=== PATIENT | female | born 1975 | race Caucasian/White ===

== ENCOUNTER 2023-03-27 21:19 | Inpatient (IN) ==
[2023-03-27] MEDS ORDERED: SODIUM CHLORIDE 0.9% 1000ML 1,000 ML IV SCH (21:45)
[2023-03-27] MEDS ORDERED: ALBUT/IPRATROP 3MG/0.5MG NEB 3 ML VIAL NEB STA (21:45)
--- NOTE | 2023-03-27 21:49 | Emergency Department Note ---
History of Present Illness General Chief complaint: Weakness Stated complaint: SOB, SYIONOTIC, GENERALIZED PAIN, NUMBNESS Time Seen by Provider: 03/27/23 21:27 History of Present Illness This 48-year-old female presents to the ER complaining of shortness of breath with minimal exertion for the past few days. Patient states her back pain is let up from her last ER visit. Patient states she has been quite weak and fatigued. Patient denies chest pain, abdominal pain, vomiting, diarrhea, flulike illness. She took some aspirin prior to coming here. Home Medications Medication Instructions Recorded Confirmed Type None (Patient States No Home Meds) ##0 05/03/08 History OXYCODONE/ACETAMINOPHEN 5MG/325MG 1 - 2 tab PO Q4HR PRN ##20 05/03/08 Rx (PERCOCET 5MG/325MG) methylprednisolone 4 mg tablets in 4 mg PO DAILY #21 ea 03/24/23 Rx a dose pack (Medrol (Bob)) ondansetron 4 mg disintegrating 4 mg PO Q6H PRN nausea and 03/24/23 Rx tablet vomiting #10 tabs oxycodone 5 mg tablet 5 mg PO Q4H PRN pain #15 tabs 03/24/23 Rx Allergies Allergy/AdvReac Type Severity Reaction Status Date / Time codeine Allergy Mild ITCH Verified 10/08/09 03:26 No Known Allergies Allergy Mild Unverified 05/03/08 21:05 Past Med/Surg History Medical History Kidney stones Rheumatoid arthritis Surgical History No significant past surgical history Social History Smoking Status: Current every day smoker Preferred Language: Kinyarwanda marital status: Current Living Situation: Spouse current occupational status: employed Feels Safe at Home: Yes Review of Systems A total of 10 systems reviewed and were otherwise negative Physical Exam Vital Signs Vital Signs - 24 hr 03/27/23 21:22 03/27/23 21:57 03/27/23 21:57 Temperature 36.9 C 37.3 C Temperature Source Temporal Artery Scan Oral Pulse Rate 130 H Pulse Rate [Finger] Pulse Rate from SpO2 Sensor Respiratory Rate 17 Respiratory Effort / Characteristics Respiratory Depth Blood Pressure 178/120 H Blood Pressure Mean 139 Pulse Oximetry 98 99 Oxygen Delivery Method Room Air Room Air Sepsis Recent Fever Within 48 Hours No Sepsis New/Unexplained Change in Mental Status No Sepsis Action Taken by Nursing No Action Required 03/27/23 21:56 03/27/23 21:51 03/27/23 21:52 Temperature Temperature Source Pulse Rate 111 H 111 H Pulse Rate [Finger] Pulse Rate from SpO2 Sensor 111 H Respiratory Rate 25 H Respiratory Effort / Characteristics Respiratory Depth Blood Pressure 185/118 H Blood Pressure Mean 133 Pulse Oximetry 98 Oxygen Delivery Method Room Air Sepsis Recent Fever Within 48 Hours Sepsis New/Unexplained Change in Mental Status Sepsis Action Taken by Nursing 03/28/23 00:10 Temperature Temperature Source Pulse Rate Pulse Rate [Finger] 109 H Pulse Rate from SpO2 Sensor Respiratory Rate 20 Respiratory Effort / Characteristics Non-Labored Spontaneous Respiratory Depth Normal Blood Pressure Blood Pressure Mean Pulse Oximetry 97 Oxygen Delivery Method Room Air Sepsis Recent Fever Within 48 Hours Sepsis New/Unexplained Change in Mental Status Sepsis Action Taken by Nursing VITALS: Vitals are noted on the nurse's note and reviewed by myself. Vital signs hypertensive and tachycardic. GENERAL: Pleasant female, in no acute distress, nondiaphoretic, well-developed well-nourished. SKIN: The skin was without rashes, erythema, edema, or bruising. There is no tenting of the skin. Capillary reflex less than 2 seconds. HEAD: Normocephalic atraumatic. EARS: External auditory canals clear, EYES: Pupils equal round and reactive to light and accommodation. Conjunctivae without injection, sclerae without icterus. Extraocular movements intact. NOSE: Patent, turbinates without inflammation or discharge. MOUTH: Mucous membranes moist. Pharynx without erythema or exudate. Uvula midline. Airway patent. Tongue does not deviate. NECK: Supple without nuchal rigidity. No lymphadenopathy. No thyromegaly. Cervical spine is nontender. No JVD. HEART: Mildly tachycardic rate and rhythm LUNGS: Clear to auscultation bilaterally without wheezes, rales or rhonchi. No retractions or accessory muscle use. ABDOMEN: Positive bowel sounds x 4. Normal tympanic percussion. Soft, nontender, without masses or organomegaly. Mujica sign negative. No guarding or rebound tenderness. No CVA tenderness MUSCULOSKELETAL: No muscle atrophy, erythema, or edema noted. NEURO: Patient was alert and oriented to person place and time. Normal sensation to light and sharp touch. No focal neurological deficits. Course Administered Medications Discontinued Medications Albuterol (Albut/Ipratrop 3mg/0.5mg Neb 3 Ml Vial) 3 ml NEB NOW STA; Protocol Stop: 03/27/23 21:46 Last Admin: 03/27/23 22:31 Dose: 3 ml Documented By: LUCINDA Sodium Chloride (Nss 1000ml) 1,000 mls @ 999 mls/hr IV .Q1H1M MARY CARMEN Stop: 03/27/23 22:45 Last Infusion: 03/28/23 00:08 Dose: 0 mls/hr Documented By: Admin: 03/27/23 22:52 Dose: 999 mls/hr Documented By: KAI Ioversol (Ioversol 350 Mg 125ml Prefilled Syringe) 116 ml IV ONCE ONE Stop: 03/28/23 00:11 Last Admin: 03/28/23 00:11 Dose: 116 ml Documented By: JENARO Medical Decision Making Medical Records Attestation: I reviewed the patient's medical records. Home Medications Current Medication List: was personally reviewed by me Laboratory Data Attestation: I reviewed the patient's lab results. 03/27/23 23:01 03/27/23 23:01 Lab Results 03/27/23 03/27/23 03/27/23 Range/Units 22:36 23:01 23:01 WBC 15.01 H (4.8-10.8) K/ul RBC 5.70 H (4.20-5.40) M/uL Hgb 16.8 H (12.0-16.0) g/dl Hct 48.4 H (37.0-47.0) % MCV 84.9 (80.0-100.0) fL MCH 29.5 (25.0-34.0) pg MCHC 34.7 (32.0-36.0) g/dL RDW Std Deviation 40.9 (36.4-46.3) fL RDW Coeff of Krystina 13.2 (11.5-14.5) % Plt Count 343 (130-400) K/uL MPV 10.1 (9.4-12.4) fL Immature Gran % (Auto) 0.4 % Neut % (Auto) 71.0 % Lymph % (Auto) 20.7 % [place] % (Auto) 7.3 % Eos % (Auto) 0.1 % Baso % (Auto) 0.5 % Neut # (Auto) 10.66 H (1.40-6.50) K/uL Lymph # (Auto) 3.10 (1.2-3.4) K/uL [place] # (Auto) 1.10 H (0.11-0.59) K/uL Eos # (Auto) 0.01 (0-0.50) K/uL Baso # (Auto) 0.08 (0-0.2) K/uL Immature Gran # (Auto) 0.06 (0.01-0.20) K/uL Sodium 138 (136-145) mmol/L Potassium 3.3 L (3.5-5.1) mmol/L Chloride 104 (98-107) mmol/L Carbon Dioxide 22 (21-32) mmol/L Anion Gap 12 H (3-11) BUN 22 (6-23) mg/dl Creatinine 1.29 H (0.6-1.2) mg/dl Est Cr Clr Drug Dosing Not Reportable Est GFR ( Amer) 55.9 ml/min Est GFR (Non-Af Amer) 48.2 ml/min BUN/Creatinine Ratio 17.1 (10-20) Glucose 112 H (70-99(Fasting)) mg/dl Calcium 9.2 (8.6-10.3) mg/dl Magnesium 2.0 (1.7-2.4) mg/dl Total Bilirubin 0.7 (0.2-1.0) mg/dl AST 14 (13-39) U/L ALT 12 (7-52) U/L Alkaline Phosphatase 111 H (34-104) U/L Total Creatine Kinase 76 (26-192) U/L Troponin I High Sens 21.0 H (0-14) pg/ml Total Protein 6.6 (6.0-8.3) gm/dl Albumin 4.3 (3.4-5.0) gm/dl Globulin 2.3 L (2.5-4.0) gm/dl Albumin/Globulin Ratio 1.9 (0.9-2) TSH (0.300-4.500) uIu/ml SARS-CoV-2 (PCR) NEGATIVE (Negative) 03/27/23 Range/Units 23:01 WBC (4.8-10.8) K/ul RBC (4.20-5.40) M/uL Hgb (12.0-16.0) g/dl Hct (37.0-47.0) % MCV (80.0-100.0) fL MCH (25.0-34.0) pg MCHC (32.0-36.0) g/dL RDW Std Deviation (36.4-46.3) fL RDW Coeff of Krystina (11.5-14.5) % Plt Count (130-400) K/uL MPV (9.4-12.4) fL Immature Gran % (Auto) % Neut % (Auto) % Lymph % (Auto) % [place] % (Auto) % Eos % (Auto) % Baso % (Auto) % Neut # (Auto) (1.40-6.50) K/uL Lymph # (Auto) (1.2-3.4) K/uL [place] # (Auto) (0.11-0.59) K/uL Eos # (Auto) (0-0.50) K/uL Baso # (Auto) (0-0.2) K/uL Immature Gran # (Auto) (0.01-0.20) K/uL Sodium (136-145) mmol/L Potassium (3.5-5.1) mmol/L Chloride (98-107) mmol/L Carbon Dioxide (21-32) mmol/L Anion Gap (3-11) BUN (6-23) mg/dl Creatinine (0.6-1.2) mg/dl Est Cr Clr Drug Dosing Est GFR ( Amer) ml/min Est GFR (Non-Af Amer) ml/min BUN/Creatinine Ratio (10-20) Glucose (70-99(Fasting)) mg/dl Calcium (8.6-10.3) mg/dl Magnesium (1.7-2.4) mg/dl Total Bilirubin (0.2-1.0) mg/dl AST (13-39) U/L ALT (7-52) U/L Alkaline Phosphatase (34-104) U/L Total Creatine Kinase (26-192) U/L Troponin I High Sens (0-14) pg/ml Total Protein (6.0-8.3) gm/dl Albumin (3.4-5.0) gm/dl Globulin (2.5-4.0) gm/dl Albumin/Globulin Ratio (0.9-2) TSH 1.540 (0.300-4.500) uIu/ml SARS-CoV-2 (PCR) (Negative) Imaging Data Attestation: I personally reviewed and interpreted this imaging study as follows: Radiologist's Impression: Chest CTA 03/27/23 21:45 Exam(s): CTA CHEST IV Amt: 116 ml optiray 350 EXAM: CT Angiography Chest With Intravenous Contrast CLINICAL HISTORY: Reason for exam: PE, sob, tachy. TECHNIQUE: Axial computed tomographic angiography images of the chest with intravenous contrast. CTDI is 81.54 mGy and DLP is 1743.43 mGy-cm. Automated exposure control was utilized for the study. A dose lowering technique was utilized adhering to the principles of ALARA. MIP reconstructed images were created and reviewed. COMPARISON: No relevant prior studies available. FINDINGS: Pulmonary arteries: Unremarkable. No acute pulmonary embolism. Aorta: No acute findings. No thoracic aortic aneurysm. Lungs: Unremarkable. No mass. No consolidation. Pleural space: Unremarkable. No focal infiltrate, pleural effusion, or pneumothorax. Heart: Mild cardiomegaly. No significant pericardial effusion. No evidence of RV dysfunction. Bones/joints: No acute fracture. No dislocation. Soft tissues: Unremarkable. Lymph nodes: Unremarkable. No enlarged lymph nodes. Liver: Hepatic steatosis. Stomach and bowel: Mild wall thickening of the proximal stomach measuring up to 2.4 cm. Upper GI endoscopy recommended. IMPRESSION: 1. No acute pulmonary embolism. 2. No focal infiltrate, pleural effusion, or pneumothorax. 3. Hepatic steatosis. 4. Mild wall thickening of the proximal stomach measuring up to 2.4 cm. Upper GI endoscopy recommended. Electronically signed by: Santo Enriquez MD 03/28/23 00:25 AM [facility] Narrative Prior records/ancillary studies reviewed and summarized above. Nursing notes reviewed. Additional history obtained from family. The patient's history was concerning for shortness of breath, weakness and fatigue. Differential diagnosis: Etiologies such as pulmonary, infectious, metabolic, infection, hypo/hyperglycemia, electrolyte abnormalities, cardiac sources, intracerebral event, toxicologic, neurologic, as well as others were entertained. Physical examination: As above. ER treatment provided: IV Lock An order was placed for continuous cardiac monitoring. The monitor shows a rate of 60-1 50 with a sinus rhythm per my interpretation. IV fluids, nebulizer were ordered On reassessment the patient felt better. Diagnostics interpretation by me: ECG: Ordered for dyspnea EKG: Normal sinus, normal intervals, no acute ST-T wave changes, rate of 103. Impression sinus tachycardia independently interpreted by myself I think arrhythmia is unlikely. EKG shows normal sinus rhythm with no interval abnormalities such as QT prolongation or WPW. There are no findings to suggest Brugada syndrome. Cardiac monitoring in the emergency department reveals no tachycardic or bradycardic dysrhythmia. Hypertrophic cardiomyopathy was considered but there are no clear historical elements pointing toward this. EKG is not suggestive. The QRS voltage is not extremely large and there are no suggestive Q waves. The labs Independently Interpreted by myself revealed leukocytosis, elevated troponin and repeat was ordered Imaging studies: Chest x-ray with no acute consolidation, pneumothorax or free air per my independent interpretation CT of the chest negative for PE but dilated stomach is seen per my independent interpretation and report reviewed as above by radiology. HEART SCORE: Hx: high/mod/low suspicion: 0 ECG: ST depression/nonspecific changes/normal: 0 Age: Greater than 65/45-64/less than 45: 1 Risk factors: (Hypertension, hyperlipidemia, diabetes, coronary disease, tobacco use, cocaine use): 1 Troponin: Greater than 2 times normal limits/1-2 times normal limits/normal: 1 Total: 3 Consultation: A consultation was placed with the hospitalist. The case was discussed and diagnostics were reviewed. The patient was evaluated in the ER for further treat ment. Exam and history seem consistent with dyspnea with elevated troponin. CTA was negative for PE. Labs and diagnostics were independent interpreted by myself. Radiology read the CAT scan. EKG was nonischemic. First troponin was elevated. Repeat was ordered. Medicine was consulted and the case was discussed. Patient will be admitted to the medical service for further evaluation and work- up. By the evaluation outlined above emergent etiologies such as infection, electrolyte abnormalities, intracerebral event, toxologic, neurologic, abnormalities blood glucose, metabolic, as well as others were deemed relatively unlikely. The pt informed about the findings as listed above. All questions were answered and pleased with the treatment. The chart was completed utilizing Dragon Speech voice recognition software. Grammatical errors, random word insertions, pronoun errors, and incomplete sentences are an occassional consequence of this system due to software limitat ions, ambient noise, and hardware issues. Any formal questions or concerns about the content, text, or information contained within the body of this dictation should be directly addressed to the physician assistant director of residence life for clarification. Impression & Plan Acute dyspnea, Elevated troponin Discharge Plan Visit Data Chief Complaint: Weakness Stated Complaint: SOB, SYIONOTIC, GENERALIZED PAIN, NUMBNESS ED Provider: Po Miranda ED Midlevel Provider: Kary Montero Discharge Problem: Acute dyspnea, Elevated troponin Patient Disposition: Admitted As Inpatient Condition: Good Forms Stand Alone Forms: studentSN Prescriptions Prescriptions: No Action None (Patient States No Home Meds) . Qty: 0 OXYCODONE/ACETAMINOPHEN 5MG/325MG (PERCOCET 5MG/325MG) tablet 1 - 2 tab PO Q4HR PRN Qty: 20 0RF methylprednisolone [Medrol (Bob)] 4 mg tablets,dose pack 4 mg PO DAILY Qty: 21 0RF Rx Instructions: Per package instructions ondansetron 4 mg tablet,disintegrating 4 mg PO Q6H PRN (Reason: nausea and vomiting) Qty: 10 0RF oxycodone 5 mg tablet 5 mg PO Q4H PRN (Reason: pain) Qty: 15 0RF Referrals Referrals: Neo Prince MD [Primary Care Provider] -
[2023-03-27 23:27] LABS: Basophils # (auto) 0.08 K/uL (0-0.2); Basophils % (auto) 0.5 %; Eosinophils # (auto) 0.01 K/uL (0-0.50); Eosinophils % (auto) 0.1 %; Hematocrit (blood only) 48.4 % (37.0-47.0); Hemoglobin 16.8 g/dl (12.0-16.0); Immature Granulocytes # (auto) 0.06 K/uL (0.01-0.20); Immature Granulocytes % (auto) 0.4 %; Lymphocytes % (auto) 20.7 %; Mean Corpuscular Hemoglobin 29.5 pg (25.0-34.0); Mean Corpuscular Hgb Conc 34.7 g/dL (32.0-36.0); Mean Corpuscular Volume 84.9 fL (80.0-100.0); Mean Platelet Volume 10.1 fL (9.4-12.4); Monocytes % (auto) 7.3 %; Neutrophils # (auto) 10.66 K/uL (1.40-6.50); Platelet Count 343 K/uL (130-400); RDW Coefficient of Variation 13.2 % (11.5-14.5); RDW Standard Deviation 40.9 fL (36.4-46.3); White Blood Count 15.01 K/ul (4.8-10.8)
[2023-03-27 23:33] LABS: Albumin Level 4.3 gm/dl (3.4-5.0); Anion Gap 12 (3-11); Bilirubin,Total 0.7 mg/dl (0.2-1.0); Calcium 9.2 mg/dl (8.6-10.3); Carbon Dioxide 22 mmol/L (21-32); Chloride 104 mmol/L (98-107); Potassium 3.3 mmol/L (3.5-5.1); Sodium 138 mmol/L (136-145)
[2023-03-27 23:39] LABS: Alanine Aminotransferase 12 U/L (7-52); Albumin Globulin Ratio 1.9 (0.9-2); Alkaline Phosphatase 111 U/L (34-104); Aspartate Aminotransferase 14 U/L (13-39); BUN Creatinine Ratio 17.1 (10-20); Blood Urea Nitrogen 22 mg/dl (6-23); Creatine Kinase 76 U/L (26-192); Est GFR (African American) 55.9 ml/min; Est GFR (Non-African American) 48.2 ml/min; Globulin 2.3 gm/dl (2.5-4.0); Glucose 112 mg/dl (70-99(Fasting)); Total Protein 6.6 gm/dl (6.0-8.3)
[2023-03-28] MEDS ORDERED: IOVERSOL 350 MG 125mL Prefilled Syringe IV ONE (00:10)
--- NOTE | 2023-03-28 00:26 | CT Scan Report ---
Exam(s): CTA CHEST IV Amt: 116 ml optiray 350 EXAM: CT Angiography Chest With Intravenous Contrast CLINICAL HISTORY: Reason for exam: PE, sob, tachy. TECHNIQUE: Axial computed tomographic angiography images of the chest with intravenous contrast. CTDI is 81.54 mGy and DLP is 1743.43 mGy-cm. Automated exposure control was utilized for the study. A dose lowering technique was utilized adhering to the principles of ALARA. MIP reconstructed images were created and reviewed. COMPARISON: No relevant prior studies available. FINDINGS: Pulmonary arteries: Unremarkable. No acute pulmonary embolism. Aorta: No acute findings. No thoracic aortic aneurysm. Lungs: Unremarkable. No mass. No consolidation. Pleural space: Unremarkable. No focal infiltrate, pleural effusion, or pneumothorax. Heart: Mild cardiomegaly. No significant pericardial effusion. No evidence of RV dysfunction. Bones/joints: No acute fracture. No dislocation. Soft tissues: Unremarkable. Lymph nodes: Unremarkable. No enlarged lymph nodes. Liver: Hepatic steatosis. Stomach and bowel: Mild wall thickening of the proximal stomach measuring up to 2.4 cm. Upper GI endoscopy recommended. IMPRESSION: 1. No acute pulmonary embolism. 2. No focal infiltrate, pleural effusion, or pneumothorax. 3. Hepatic steatosis. 4. Mild wall thickening of the proximal stomach measuring up to 2.4 cm. Upper GI endoscopy recommended. Electronically signed by: Santo Enriquez MD 03/28/23 00:25 AM
--- NOTE | 2023-03-28 02:14 | History & Physical Report ---
Date of Service March 28, 2023 Assessment & Plan (1) Acute dyspnea: Plan: 48-year-old female presents with dyspnea on exertion and found to have an elevation of troponin. Dyspnea on exertion Mild troponin elevation Denies chest pain CTA chest okay Ongoing tobacco abuse with quarter pack a day No obvious wheezing Recent nausea vomiting but no obvious aspiration on imaging studies We will do nebs [id number] We will do serial cardiac enzymes and echocardiogram and consult cardio in a.m. N.p.o. for now Monitoring telemetry Stomach wall thickening on CAT scan We will place her on IV Pepcid Consult GI in a.m. Lumbar radiculitis Was in the ER couple of days ago with back pain Medrol Dosepak was prescribed Currently pain improved We will hold the Medrol Dosepak Hypertension Seems not on any medication We will place her on IV labetalol as needed We will monitor Obesity Needs counseling Inflammatory polyarthritis We will hold leflunomide and etodolac for now Fibromyalgia On Cymbalta DVT prophylaxis SCDs for now Disposition Med/telemetry Full code (2) Elevated troponin: History of Present Illness Chief Complaint: Shortness of breath on exertion Primary Care Provider: Neo Prince MD 48-year-old female past medical significant for hypertension, obesity, inflammatory polyarthritis, fibromyalgia, osteoarthritis of knees, migraine, ongoing tobacco abuse smokes quarter pack a day presents with shortness of breath on exertion starting today. Patient was here couple of days ago in ER for abdominal pain and back pain at the time CT abdomen pelvis was okay and she was discharged home on Medrol Dosepak for lumbar radiculitis and pain medications. Her back pain is improved. Patient not coughing much. Afebrile. Denies any chest pain. No headache or dizziness. No blurred vision. No earache or runny nose or sore throat. No dysphagia. No nausea. No abdominal pain currently. Normal bowel and bladder meds. Resting comfortably. Past medical history as mentioned above Past surgical history bilateral carpal tunnel surgery Family history patient is adopted Social history smokes quarter pack a day. No alcohol use. No drug use. Allergies Allergy/AdvReac Type Severity Reaction Status Date / Time codeine Allergy Mild ITCH Verified 10/08/09 03:26 No Known Allergies Allergy Mild Unverified 05/03/08 21:05 Home Medications Medication Instructions Recorded Confirmed Type duloxetine 60 mg capsule,delayed 60 mg PO DAILY 03/28/23 03/28/23 History release etodolac 500 mg tablet 500 mg PO BID 03/28/23 03/28/23 History hydrocodone 5 mg-acetaminophen 325 1 tab PO TID PRN Pain 03/28/23 03/28/23 History mg tablet leflunomide 10 mg tablet 10 mg PO DAILY 03/28/23 03/28/23 History methylprednisolone 4 mg tablets in 4 mg PO UD 03/28/23 03/28/23 History a dose pack Past Med/Surg History Medical History Kidney stones Rheumatoid arthritis Surgical History No significant past surgical history Social History Smoking Status: Current every day smoker Preferred Language: Cymro marital status: Current Living Situation: Spouse current occupational status: employed Feels Safe at Home: Yes Review of Systems Review of Systems: All systems reviewed & are unremarkable except as noted in Subjective Physical Exam Physical Exam: General-Not in distress Head- atraumatic Eyes- PERRL ENT- oropharynx clear Neck- supple, no JVD, Lungs- clear to auscultation and percussion Heart- regular rhythm; no murmur, no gallop, no rub appreciated Abdomen- normal bowel sounds, soft, nontender, no distension Extremities- no pretibial edema, no erythema. Neuro- alert, oriented x 3; PERRL, EOMI; no facial palsy; no dysarthria; NOn focal. Skin- warm & dry Results & Data Results & Data Vital Signs (Past 12 Hours) Vital Signs Temp Pulse Pulse Resp BP BP Pulse Ox 03/28/23 02:02 100 H 20 174/119 H 100 03/28/23 01:56 103 H 03/28/23 00:10 109 H 20 97 03/27/23 21:52 111 H 25 H 98 03/27/23 21:51 185/118 H 03/27/23 21:56 111 H 03/27/23 21:57 99 03/27/23 21:57 37.3 C 03/27/23 21:22 36.9 C 130 H 17 178/120 H 98 O2 Del Method 03/28/23 02:02 Room Air 03/28/23 01:56 03/28/23 00:10 Room Air 03/27/23 21:52 Room Air 03/27/23 21:51 03/27/23 21:56 03/27/23 21:57 Room Air 03/27/23 21:57 03/27/23 21:22 Room Air Diagnostic Findings Laboratory Results WBC 15.01 K/ul (4.8-10.8) H 03/27/23 23:01 RBC 5.70 M/uL (4.20-5.40) H 03/27/23 23:01 Hgb 16.8 g/dl (12.0-16.0) H 03/27/23 23:01 Hct 48.4 % (37.0-47.0) H 03/27/23 23:01 MCV 84.9 fL (80.0-100.0) 03/27/23 23:01 MCH 29.5 pg (25.0-34.0) 03/27/23 23:01 MCHC 34.7 g/dL (32.0-36.0) 03/27/23 23:01 RDW Std Deviation 40.9 fL (36.4-46.3) 03/27/23 23:01 RDW Coeff of Krystina 13.2 % (11.5-14.5) 03/27/23 23:01 Plt Count 343 K/uL (130-400) 03/27/23 23:01 MPV 10.1 fL (9.4-12.4) 03/27/23 23:01 Immature Gran % (Auto) 0.4 % 03/27/23 23:01 Neut % (Auto) 71.0 % 03/27/23 23:01 Lymph % (Auto) 20.7 % 03/27/23 23:01 [place] % (Auto) 7.3 % 03/27/23 23:01 Eos % (Auto) 0.1 % 03/27/23 23:01 Baso % (Auto) 0.5 % 03/27/23 23:01 Neut # (Auto) 10.66 K/uL (1.40-6.50) H 03/27/23 23:01 Lymph # (Auto) 3.10 K/uL (1.2-3.4) 03/27/23 23:01 [place] # (Auto) 1.10 K/uL (0.11-0.59) H 03/27/23 23:01 Eos # (Auto) 0.01 K/uL (0-0.50) 03/27/23 23:01 Baso # (Auto) 0.08 K/uL (0-0.2) 03/27/23 23:01 Immature Gran # (Auto) 0.06 K/uL (0.01-0.20) 03/27/23 23:01 Sodium 138 mmol/L (136-145) 03/27/23 23:01 Potassium 3.3 mmol/L (3.5-5.1) L 03/27/23 23: Chloride 104 mmol/L (98-107) 03/27/23 23:01 Carbon Dioxide 22 mmol/L (21-32) 03/27/23 23: Anion Gap 12 (3-11) H 03/27/23 23:01 BUN 22 mg/dl (6-23) 03/27/23 23:01 Creatinine 1.29 mg/dl (0.6-1.2) H 03/27/23 23:01 Est Cr Clr Drug Dosing Not Reportable 03/27/23 23: Est GFR ( Amer) 55.9 ml/min 03/27/23 23: Est GFR (Non-Af Amer) 48.2 ml/min 03/27/23 23:01 BUN/Creatinine Ratio 17.1 (10-20) 03/27/23 23: Glucose 112 mg/dl (70-99(Fasting)) H 03/27/23 23:01 Calcium 9.2 mg/dl (8.6-10.3) 03/27/23 23:01 Magnesium 2.0 mg/dl (1.7-2.4) 03/27/23 23:01 Total Bilirubin 0.7 mg/dl (0.2-1.0) 03/27/23 23:01 AST 14 U/L (13-39) 03/27/23 23:01 ALT 12 U/L (7-52) 03/27/23 23:01 Alkaline Phosphatase 111 U/L (34-104) H 03/27/23 23:01 Total Creatine Kinase 76 U/L (26-192) 03/27/23 23:01 Troponin I High Sens 26.2 pg/ml (0-14) H 03/28/23 01:10 Total Protein 6.6 gm/dl (6.0-8.3) 03/27/23 23:01 Albumin 4.3 gm/dl (3.4-5.0) 03/27/23 23:01 Globulin 2.3 gm/dl (2.5-4.0) L 03/27/23 23:01 Albumin/Globulin Ratio 1.9 (0.9-2) 03/27/23 23:01 TSH 1.540 uIu/ml (0.300-4.500) 03/27/23 23:01 SARS-CoV-2 (PCR) NEGATIVE (Negative) 03/27/23 22:36 Impressions Chest CTA 03/27/23 21:45 Exam(s): CTA CHEST IV Amt: 116 ml optiray 350 EXAM: CT Angiography Chest With Intravenous Contrast CLINICAL HISTORY: Reason for exam: PE, sob, tachy. TECHNIQUE: Axial computed tomographic angiography images of the chest with intravenous contrast. CTDI is 81.54 mGy and DLP is 1743.43 mGy-cm. Automated exposure control was utilized for the study. A dose lowering technique was utilized adhering to the principles of ALARA. MIP reconstructed images were created and reviewed. COMPARISON: No relevant prior studies available. FINDINGS: Pulmonary arteries: Unremarkable. No acute pulmonary embolism. Aorta: No acute findings. No thoracic aortic aneurysm. Lungs: Unremarkable. No mass. No consolidation. Pleural space: Unremarkable. No focal infiltrate, pleural effusion, or pneumothorax. Heart: Mild cardiomegaly. No significant pericardial effusion. No evidence of RV dysfunction. Bones/joints: No acute fracture. No dislocation. Soft tissues: Unremarkable. Lymph nodes: Unremarkable. No enlarged lymph nodes. Liver: Hepatic steatosis. Stomach and bowel: Mild wall thickening of the proximal stomach measuring up to 2.4 cm. Upper GI endoscopy recommended. IMPRESSION: 1. No acute pulmonary embolism. 2. No focal infiltrate, pleural effusion, or pneumothorax. 3. Hepatic steatosis. 4. Mild wall thickening of the proximal stomach measuring up to 2.4 cm. Upper GI endoscopy recommended. Electronically signed by: Santo Enriquez MD 03/28/23 00:25 AM ECG Additional Comments: ECG sinus tachycardia with rate of [address]at[address] no acute ST seen Code Status & VTE Plan VTE Prophylaxis Plan VTE Prophylaxis will be ordered: Yes
[2023-03-28 02:43] LABS: Appearance Urine Clear (Clear); Bacteria Urine Automated Negative (Negative); Bilirubin Urine Negative (Negative); Blood Urine 3+ (Negative); Color Urine Yellow; Glucose Urine UA Negative (Negative); Ketones Urine Negative (Negative); Leukocyte Esterase Urine Negative (Negative); Nitrite Urine Negative (Negative); Protein Urine Trace (Negative); RBC Urine Automated >30 /hpf (0-4); Specific Gravity Urine > 1.045 (1.000-1.030); Urobilinogen Urine Negative (Negative); WBC Urine Automated >30 /hpf (0-5)
[2023-03-28 02:55] LABS: Cast Urine Automated 0 /lpf (0-5)
[2023-03-28] MEDS ORDERED: HYDROCODONE/ACETAMOPHEN 5/325MG TAB PO ONE (03:21)
[2023-03-28] MEDS ORDERED: NITROGLYCERIN SL 0.4 MG/TAB TAB SL PRN (04:43)
[2023-03-28] MEDS ORDERED: ACETAMINOPHEN 325 MG TAB PO PRN (04:43)
[2023-03-28] MEDS ORDERED: ONDANSETRON INJ 2 MG/ML 2 ML VIAL IV PRN (04:43)
[2023-03-28] MEDS ORDERED: SODIUM CHLORIDE 0.9% 1000ML 1,000 ML IV SCH (05:00)
[2023-03-28] MEDS ORDERED: LABETALOL HCL IV 5 MG/ML 20ML IV STA (05:53)
[2023-03-28] MEDS: NICOTINE 14 MG/24 HR PATCH TD SCH (06:42)
[2023-03-28] MEDS: ALBUT/IPRATROP 3MG/0.5MG NEB 3 ML VIAL NEB SCH ×4 (06:57→19:53)
--- NOTE | 2023-03-28 07:07 | XRay Report ---
XR chest 1V portable HISTORY: weakness COMPARISON: None. FINDINGS: The lungs are clear. Cardiac silhouette is normal in size. No pleural effusions. No pneumot horax. IMPRESSION: No acute process. ACT 112: Negative or not required by law. Electronically signed by: Venu Zuniga M.D. 03/28/2023 7:06 AM
[2023-03-28 07:22] LABS: Basophils # (auto) 0.04 K/uL (0-0.2); Basophils % (auto) 0.4 %; Eosinophils % (auto) 1.1 %; Hematocrit (blood only) 45.9 % (37.0-47.0); Hemoglobin 15.5 g/dl (12.0-16.0); Immature Granulocytes # (auto) 0.02 K/uL (0.01-0.20); Immature Granulocytes % (auto) 0.2 %; Lymphocytes # (auto) 2.03 K/uL (1.2-3.4); Lymphocytes % (auto) 22.3 %; Mean Corpuscular Hgb Conc 33.8 g/dL (32.0-36.0); Mean Corpuscular Volume 85.8 fL (80.0-100.0); Mean Platelet Volume 10.1 fL (9.4-12.4); Monocytes # (auto) 0.68 K/uL (0.11-0.59); Monocytes % (auto) 7.5 %; Neutrophils # (auto) 6.24 K/uL (1.40-6.50); Neutrophils % (auto) 68.5 %; Platelet Count 301 K/uL (130-400); RDW Coefficient of Variation 13.2 % (11.5-14.5); RDW Standard Deviation 40.8 fL (36.4-46.3); Red Blood Count 5.35 M/uL (4.20-5.40); White Blood Count 9.11 K/ul (4.8-10.8)
--- NOTE | 2023-03-28 07:24 | Anesthesiology Consultation ---
Date of Service March 28, 2023 Assessment & Plan (1) Encounter for pre-operative examination: Chart Review Chart Review: Acceptable Risk for Surgery, Patient NOT seen in Pre Admission Testing and data entry associate initiated Consults Requested none History Surgery Operation Date: 03/28/23 16:30 Proposed Procedures p Esophagogastroduodenoscopy Dr Rocco Valiente, DO Height/Weight Height: 5 ft 4 in Weight: 97.8 kg Allergies Allergy/AdvReac Type Severity Reaction Status Date / Time codeine Allergy Mild ITCH Verified 10/08/09 03:26 No Known Allergies Allergy Mild Unverified 05/03/08 21:05 Medications Home Medications Medication Instructions Recorded Confirmed Last Taken duloxetine 60 mg capsule,delayed 60 mg PO DAILY 03/28/23 03/28/23 Unknown release etodolac 500 mg tablet 500 mg PO BID 03/28/23 03/28/23 Unknown hydrocodone 5 mg-acetaminophen 325 1 tab PO TID PRN Pain 03/28/23 03/28/23 Unknown mg tablet leflunomide 10 mg tablet 10 mg PO DAILY 03/28/23 03/28/23 Unknown methylprednisolone 4 mg tablets in 4 mg PO UD 03/28/23 03/28/23 Unknown a dose pack Active Medications Generic Name Dose Route Start Last Admin Trade Name Freq PRN Reason Stop Dose Admin Albuterol 3 ml 03/28/23 07:00 03/28/23 06:57 Albut/Ipratrop 3mg/0.5mg Neb 3 Ml Vial NEB 04/27/23 06:59 3 ml QIDR MARY CARMEN Administration Protocol Sodium Chloride 1,000 mls @ 80 mls/hr 03/28/23 05:00 03/28/23 05:46 Nss 1000ml IV 03/28/23 17:29 80 mls/hr .[id number] MARY CARMEN Administration Nicotine 14 mg 03/28/23 06:00 03/28/23 06:42 Nicotine 14 Mg/24 Hr Patch TD 04/27/23 05:59 14 mg DAILY MARY CARMEN Administration Past Medical History Medical History (Updated 03/28/23 @ 07:25 by Angel Gil MD) Encounter for pre-operative examination Kidney stones Rheumatoid arthritis Past Surgical History Surgical History No significant past surgical history Social History Smoking Status: Current every day smoker tobacco type: cigarettes Smoking cigarettes per day: 5-10 Do You Dip or Chew Tobacco: No Hx Alcohol Use: Yes alcohol intake frequency: holidays/special occasions only Hx Substance Use: No substance use type: does not use Physical Exam Vital Signs Last Vital Signs Temp 36.5 C 03/28/23 07:09 Pulse 74 03/28/23 07:09 Resp 18 03/28/23 07:09 BP 174/105 H 03/28/23 07:09 Pulse Ox 94 03/28/23 07:09 O2 Del Method Room Air 03/28/23 07:09 Testing Laboratory Results 03/28/23 06:48 Urine Color Yellow 03/28/23 02:28 Urine Appearance Clear (Clear) 03/28/23 02:28 Urine pH 6.0 (4.5-7.5) 03/28/23 02:28 Ur Specific [place] > 1.045 (1.000-1.030) H 03/28/23 02:28 Urine Protein Trace (Negative) H 03/28/23 02:28 Urine Glucose (UA) Negative (Negative) 03/28/23 02:28 Urine Ketones Negative (Negative) 03/28/23 02:28 Urine Nitrite Negative (Negative) 03/28/23 02:28 Ur Leukocyte Esterase Negative (Negative) 03/28/23 02:28 Urine WBC (Auto) >30 /hpf (0-5) H 03/28/23 02:28 Urine RBC (Auto) >30 /hpf (0-4) H 03/28/23 02:28 U Hyaline Cast (Auto) 0 /lpf (0-5) 03/28/23 02:28 U Epithel Cells (Auto) 10-20 /lpf (0-5) H 03/28/23 02:28 Urine Bacteria (Auto) Negative (Negative) 03/28/23 02:28 Electrocardiogram Date: 03/27/23 21:49:36 [facility]-EDSTAT ROUTINE RETRIEVAL Sinus tachycardia Biatrial enlargement Cannot rule out Anterior infarct , age undetermined Abnormal ECG No previous ECGs available 25mm/s10mm/[id number] 243CID: 24Referred by: REFERRED SELF Unconfirmed Vent. rate 103 BPM WV interval 130 ms QRS duration 74 ms QT/QTc 320/419 ms P Chest X-Ray Date: 03/27/23 XR chest 1V portable HISTORY: weakness COMPARISON: None. FINDINGS: The lungs are clear. Cardiac silhouette is normal in size. No pleural effusions. No pneumothorax. IMPRESSION: No acute process.
[2023-03-28] MEDS: DULoxetine HCL 60 MG CAP PO SCH (07:38)
[2023-03-28 07:42] LABS: BUN Creatinine Ratio 18.9 (10-20); Calcium 8.9 mg/dl (8.6-10.3); Creatinine Clr Calc Pharmacy 80.5 ml/min; Est GFR (African American) 80.9 ml/min; Est GFR (Non-African American) 69.8 ml/min; Potassium 3.3 mmol/L (3.5-5.1)
--- NOTE | 2023-03-28 07:57 | Gastrointestinal Consultation ---
Date of Consultation March 28, 2023 Assessment & Plan (1) Abnormal CT of the abdomen: (2) Upper abdominal pain: Plan EGD today by Dr. Valiente, further recommendations to follow. Supervising Physician Co-Signing Physician Notes I saw and evaluated the patient. She presented with shortness of breath but was found to have evidence of gastric wall thickening on imaging study. Upper endoscopy has been requested by the internal medicine service for further evaluation. The patient denies having nausea or vomiting today or difficulty with swallowing. Physical examination Patient in no obvious distress somewhat nervous appearing No abdominal tenderness noted Impression: Patient with nonspecific findings on imaging study, given the clinical scenario we are certainly happy to provide endoscopic evaluation for further evaluation. We discussed risks and benefits of upper endoscopy to include bleeding infection perforation pain and need for follow-up studies. Pending these results the patient may benefit from further evaluation as outpatient with endoscopic ultrasound. History of Present Illness Reason for Consultation: stomach thickening on ct scan Requesting Physician: Dr. Maldonado Attending Physician: Blaise Louis MD History of Present Illness Ms. Malinda Bridges is a 48 yr old female pt of Dr. Prince w a hx of HTN, obesity, inflammatory polyarthritis, fibromyalgia, migraines, smoking who presented to the ED yesterday for SOB. GI is consulted for gastric wall thickening on CT. She experienced severe upper/mid abdomen pain as well as mid/lower back pain on Sunday and again on Sun. She was seen in the [place] ED on Sunday then [facility] ED on Sun. CT abd/pelvis was normal here during that ED visit and she was discharged on prednisone for back/left leg pain. Although that improved, she had episodes of diaphoresis, SOB yesterday and returned to the ED. She currently has some mild/moderate epigastric pain and tenderness on exam but has not had reflux, epigastric burning, dysphagia, vomiting or blood in her BMs. She has had some nausea. CTA of the chest on arrival w gastric wall thickening. She has been kept NPO and we plan to do EGD this morning. No hx of prior EGD or colonoscopy. Allergies Allergy/AdvReac Type Severity Reaction Status Date / Time codeine Allergy Mild ITCH Verified 03/28/23 08:57 No Known Allergies Allergy Mild Verified 03/28/23 08:57 Home Medications Medication Instructions Recorded Confirmed Type duloxetine 60 mg capsule,delayed 60 mg PO DAILY 03/28/23 03/28/23 History release etodolac 500 mg tablet 500 mg PO BID 03/28/23 03/28/23 History hydrocodone 5 mg-acetaminophen 325 1 tab PO TID PRN Pain 03/28/23 03/28/23 History mg tablet leflunomide 10 mg tablet 10 mg PO DAILY 03/28/23 03/28/23 History methylprednisolone 4 mg tablets in 4 mg PO UD 03/28/23 03/28/23 History a dose pack Patient History Medical History (Updated 03/28/23 @ 09:01 by YOEL Wan) Encounter for pre-operative examination Kidney stones Rheumatoid arthritis Surgical History No significant past surgical history Social History Smoking Status: Current every day smoker Cigarettes Per Day: 5-10; Second Hand Exposure: No; Do You Dip or Chew Tobacco: No; Tobacco Cessation Education Requested by Patient: No Hx Alcohol Use: Yes Hx Substance Use: No Preferred Language: Swiss Communication Ability: Effective Emergency Room Specialist Required: No Beliefs That Will Affect Care: None marital status: Current Living Situation: Spouse Current Living Situation Comment: with current occupational status: employed Other Information That Helps Us Care for You: No Feels Safe at Home: Yes Safety Concerns: Feels Safe At This Time Assistive Devices: Cane Review of Systems Review of Systems: ROS: Gen: + Weakness, + fatigue; no fevers, or unintentional weight loss Eyes: No eye redness, or pain, no recent vision changes Resp: + episode of SOB prior to arrival - resolved. No cough Cardio: No palpitations/irregular beats, no chest pain GI: As per HPI, otherwise (-) : Denies pain on urination Skin: No jaundice, itching or new rashes Hem: no excessive bruising or bleeding tendencies. Psych: reports she hasn't had much sleep in days; a bit "reved up." Physical Exam Constitutional: WD/WN, vitals as above Eyes: PERRL, conjunctivae normal, anicteric sclerae ENMT: external ear and nose normal, oropharynx normal Neck: trachea midline, no thyromegaly Respiratory: normal respiratory effort, lungs clear to auscultation Cardiovascular: RRR, no murmur, no edema Gastrointestinal (Abdomen): Inspection/Auscultation: abdomen normal to inspection and normal bowel sounds; abdomen not distended Percussion/Palpation: + abdomen tender (mild epigastric ) and abdomen soft; no hepatosplenomegaly and no ascites Musculoskeletal: no cyanosis or clubbing, extremities motor strength 5/5 Skin: no rashes, warm and dry Neurologic: PERRL, EOMI, accommodation nl, no face palsy, no dysarthria Psychiatric: A+Ox3, euthymic affect (except slightly anxious, energetic) Lymphatic: no cervical or axillary lymphadenopathy Results & Data Vital Signs (Past 12 Hours) Vital Signs Temp Pulse Pulse Resp BP BP Pulse Ox 03/28/23 07:09 36.5 C 74 18 174/105 H 94 03/28/23 07:01 84 16 98 03/28/23 06:37 83 176/96 H 03/28/23 06:19 88 178/99 H 03/28/23 05:50 165/99 H 03/28/23 05:18 03/28/23 05:18 36.8 C 97 H 18 182/95 H 97 03/28/23 02:02 100 H 20 174/119 H 100 03/28/23 01:56 103 H 03/28/23 00:10 109 H 20 97 03/27/23 21:52 111 H 25 H 98 03/27/23 21:51 185/118 H 03/27/23 21:56 111 H 03/27/23 21:57 99 03/27/23 21:57 37.3 C 03/27/23 21:22 36.9 C 130 H 17 178/120 H 98 O2 Del Method 03/28/23 07:09 Room Air 03/28/23 07:01 Room Air 03/28/23 06:37 03/28/23 06:19 03/28/23 05:50 03/28/23 05:18 Room Air 03/28/23 05:18 Room Air 03/28/23 02:02 Room Air 03/28/23 01:56 03/28/23 00:10 Room Air 03/27/23 21:52 Room Air 03/27/23 21:51 03/27/23 21:56 03/27/23 21:57 Room Air 03/27/23 21:57 03/27/23 21:22 Room Air Laboratory Results Trops are elevated 21->26->23. WBC 15->9; Hb 15.5, Hct 45, Plts 301, na 140, I 3.3, Cl 109, Co2 24, BUN 18, Cr .95, glucose 107 Diagnostic Findings CTA Chest 03/27/23: 1 No acute pulmonary embolism. 2. No focal infiltrate, pleural effusion, or pneumothorax. 3. Hepatic steatosis. 4. Mild wall thickening of the proximal stomach measuring up to 2.4 cm. Upper GI endoscopy recommended. CTAP w IV on 03/24/23 (prior ED visit for back pain): 1. Normal appendix. No bowel obstruction. No bowel wall thickening. 2. 3 mm right renal calculus, which could be within or adjacent to a parapelvic cyst. No ureteral calculi. A punctate right pelvic calcification does not appear to represent a ureteral calculus.
[2023-03-28] MEDS ORDERED: POTASSIUM CHLORIDE CRTAB 20 MEQ TABCR PO STA ×2 (08:31→11:02)
[2023-03-28] MEDS ORDERED: FAMOTIDINE 20 MG in SYRINGE 3 ML IV SCH (09:00)
[2023-03-28] MEDS ORDERED: NICOTINE 14 MG/24 HR PATCH TD SCH (09:00)
[2023-03-28] MEDS ORDERED: PROPOFOL IV EMULSION 10 MG/ML 20 ML VIAL IV ONE ×2 (09:10→10:11)
[2023-03-28] MEDS ORDERED: LIDOCAINE 2% 2 ML VIAL/AMP(20MG/ML) INFIL ONE (09:10)
[2023-03-28] MEDS: LABETALOL HCL IV 5 MG/ML 20ML IV PRN (09:23)
--- NOTE | 2023-03-28 09:59 | GI REPORT ---
Patient Name: Malinda Bridges Procedure Date: 03/28/2023 9:12 AM Date of : 1975 Admit Type: Inpatient Age: 48 Gender: Female Attending MD: Noam Valiente DO, Procedure: Upper GI endoscopy Providers: Noam Valiente DO Referring MD: Suzy Louis Md Indications: Abnormal CT of the GI tract Medicines: Monitored Anesthesia Care Complications: No immediate complications. Estimated blood loss: Minimal. Estimated Blood Loss: Estimated blood loss was minimal. Procedure: Pre-Anesthesia Assessment: - Prior to the procedure, a History and Physical was performed, and patient medications, allergies and sensitivities were reviewed. The patient's tolerance of previous anesthesia was reviewed. - The risks and benefits of the procedure and the sedation options and risks were discussed with the patient. All questions were answered and informed consent was obtained. - Patient identification and proposed procedure were verified prior to the procedure by the physician, the nurse and the supervisor burling and joining. The procedure was verified in the procedure room. - Pre-procedure physical examination revealed no contraindications to sedation. - ASA Grade Assessment: III - A patient with severe systemic disease. - After reviewing the risks and benefits, the patient was deemed in satisfactory condition to undergo the procedure. - The anesthesia plan was to use monitored anesthesia care (MAC). - Immediately prior to administration of medications, the patient was re-assessed for adequacy to receive sedatives. - The heart rate, respiratory rate, oxygen saturations, blood pressure, adequacy of pulmonary ventilation, and response to care were monitored throughout the procedure. - The physical status of the patient was re-assessed after the procedure. After obtaining informed consent, the endoscope was passed under direct vision. Throughout the procedure, the patient's blood pressure, pulse, and oxygen saturations were monitored continuously. The Scope was introduced through the mouth, and advanced to the third part of duodenum. The upper GI endoscopy was accomplished without difficulty. The patient tolerated the procedure well. Findings: The examined esophagus was normal. The Z-line was regular and was found 38 cm from the incisors. Diffuse mild inflammation characterized by congestion (edema), erythema and granularity was found in the entire examined stomach. Biopsies were taken with a cold forceps for histology. The pathology specimen was placed into Bottle A (antrum), B (gastric body) and C (Fundus). Estimated blood loss was minimal. The examined duodenum was normal. Impression: - Normal esophagus. - Z-line regular, 38 cm from the incisors. - Diffuse gastritis. Biopsied. - Normal examined duodenum. Recommendation: - Perform an upper endoscopic ultrasound (UEUS) at appointment to be scheduled as an outpatient. - Await pathology results. - Use Prilosec (omeprazole) 20 mg PO daily. Noam Valiente D.O. Noam Valiente, 03/28/2023 9:59:23 AM This report has been signed electronically. Note Initiated On: 03/28/2023 9:12 AM Number of Addenda: 0 I attest to the content of the Intraoperative Record and orders documented therein, exceptions below {[id number]}
--- NOTE | 2023-03-28 10:00 | Communication Note ---
Date of Service: March 28, 2023 The patient underwent an upper endoscopy this morning for evaluation of gastric wall thickening seen on her recent CT scan. The esophagus and duodenum were normal. There was mild gastritis of the stomach without any evidence of a mass lesion. We did perform biopsies from the gastric antrum body and fundus. Recommendations Protonix (or equivalent) 20 mg daily Gastritis is likely related to one of the patient's medications We will make arrangements for outpatient endoscopic ultrasound Please call with any questions or concerns GI to sign off
--- NOTE | 2023-03-28 10:43 | Anesthesiology Progress Note ---
Date of Service March 28, 2023 Anesthesia Post Procedure Vital Signs Vital Signs: Temp Pulse Pulse Resp BP BP BP 03/28/23 10:34 78 18 180/113 H 03/28/23 10:19 80 18 182/108 H 03/28/23 10:04 82 18 158/115 H 03/28/23 09:38 74 183/105 H 03/28/23 09:23 83 176/96 H 03/28/23 08:00 03/28/23 08:59 36.7 C 92 H 16 170/119 H 03/28/23 07:09 36.5 C 74 18 174/105 H 03/28/23 07:01 84 16 03/28/23 06:37 83 176/96 H 03/28/23 06:19 88 178/99 H 03/28/23 05:50 165/99 H 03/28/23 05:18 03/28/23 05:18 36.8 C 97 H 18 182/95 H 03/28/23 02:02 100 H 20 174/119 H 03/28/23 01:56 103 H 03/28/23 00:10 109 H 20 03/27/23 21:52 111 H 25 H 03/27/23 21:51 185/118 H 03/27/23 21:56 111 H 03/27/23 21:57 03/27/23 21:57 37.3 C 03/27/23 21:22 36.9 C 130 H 17 178/120 H Pulse Ox O2 Del Method 03/28/23 10:34 98 Room Air 03/28/23 10:19 98 Room Air 03/28/23 10:04 94 Room Air 03/28/23 09:38 03/28/23 09:23 03/28/23 08:00 Room Air 03/28/23 08:59 96 Room Air 03/28/23 07:09 94 Room Air 03/28/23 07:01 98 Room Air 03/28/23 06:37 03/28/23 06:19 03/28/23 05:50 03/28/23 05:18 Room Air 03/28/23 05:18 97 Room Air 03/28/23 02:02 100 Room Air 03/28/23 01:56 03/28/23 00:10 97 Room Air 03/27/23 21:52 98 Room Air 03/27/23 21:51 03/27/23 21:56 03/27/23 21:57 99 Room Air 03/27/23 21:57 03/27/23 21:22 98 Room Air Pain Intensity Bilateral Leg: Pain Intensity: 8 Transfer of Care Handoff Completed per policy Notes Mental Status: alert / awake / arousable and participated in evaluation Patient Amnestic to Procedure: Yes Nausea / Vomiting: adequately controlled Pain: adequately controlled Airway Patency, RR, SpO2: stable & adequate BP & HR: stable & adequate Hydration State: stable & adequate Anesthetic Complications: no major complications apparent
[2023-03-28] MEDS ORDERED: Nursing to Pharmacy Communication SCH (11:00)
--- NOTE | 2023-03-28 11:15 | Electrocardiogram Report ---
Test Reason : Blood Pressure : / mmHG Vent. Rate : 103 BPM Atrial Rate : 103 BPM P-R Int : 130 ms QRS Dur : 074 ms QT Int : 320 ms P-R-T Axes : 058 001 049 degrees QTc Int : 419 ms Sinus tachycardia Biatrial enlargement Poor R wave progression, consider anterior AL vs. lead placement vs. LVH Abnormal ECG No previous ECGs available Confirmed by Mark Scanlon ([id number]) on 03/28/2023 11:15:02 AM Referred By: REFERRED SELF Confirmed By:Mark Scanlon
[2023-03-28] MEDS: LOSARTAN POTASSIUM 25 MG TAB PO SCH (12:22)
[2023-03-28] MEDS: HYDROCODONE/ACETAMOPHEN 5/325MG TAB PO PRN ×2 (12:24→21:29)
--- NOTE | 2023-03-28 12:57 | Cardiology Consultation ---
Date of Consultation March 28, 2023 Assessment & Plan (1) Hypertension: (2) Upper abdominal pain: (3) Elevated troponin: Plan Patient admitted with multitude of symptoms including abdominal pain, SOB, leg pain. She had been to ER 3 different times for similar complaints. CT of the abdomen revealed possible gastric wall thickening. EGD today demonstrated only mild gastritis. Cardio consulted for HTN and Borderline elevated troponin on admission, which was flat x3, and likely due to significantly uncontrolled hypertension. Per review of outpatient records, patient has a long history of hypertension that has not been treated. She was on lisinopril 20+ years ago and never resumed after . She did develop CHACHO induced cough with it. Will start losartan 25 mg and titrate as needed. Update echo to assess LV function, structural heart disease, possible LVH. Supplement potassium. Further recommendations after review of echo and response to BP medication. Case discussed with Dr. Rodriguez I spent a total of 60 minutes on the date of service in preparation, delivery, and documentation of the care provided to this patient, excluding any time spent in the performance of separately billed services. Keyana Flores PA-C Department of Cardiology, [facility] This chart was completed in part utilizing Speech Voice Recognition Software. Grammatical errors, random word insertions, pronoun errors, and incomplete sentences are an occasional consequence of this system due to software limitations, ambient noise, and hardware issues. Any formal questions or concerns about the content, text, or information contained within the body of this dictation should be directly addressed to the provider for clarification. Supervising Physician Co-Signing Physician Notes Supervising Physician Attestation: I have personally performed a history and physical examination on the patient. I agree with the physician intellectual property legal assistant's findings and plan as documented with the following additions. Subjective: No complaints at present. Had EGD earlier today with findings of mild gastritis. BP remains high. Most recent measurement 173/124. Per pt , she works as a nurse at [employer]. She checks her BP on occasion and SBP has been in the 150s. Exam: CV: regular , no murmurs, no edema Pulm: CTAB Data: Echo: LVEF 60-65%, mild concentric LVH, grade I Diastolic Dysfunction Assessment and Plan: Uncontrolled HTN -Losartan added earlier today. Add Carvedilol. DVT prophylaxis: consider pharm DVT prophylaxis tomorrow , depending on her course as EGD was without acute bleeding I spent a total of 20 minutes on the date of service in preparation, delivery, and documentation of the care provided to this patient, excluding any time spent in the performance of separately billed services. Nghia Rodriguez, DO History of Present Illness Reason for Consultation: HTN; SOB; Minimally elevated troponin Requesting Physician: Dr. Maldonado Attending Physician: Dr. Rodriguez History of Present Illness Patient is a 48-year-old female who was admitted to [facility] with multitude of complaints. She is a nurse at [employer]. She denies prior cardiovascular history including arrhythmia, valvular disease, coronary artery disease. She denies prior echo/stress test. History includes: 1. Diagnosis of hypertension when she was in her 20's. Lisinopril was stopped when she became . Gestational hypertension also noted. Since that time, she reports not being treated for uncontrolled hypertension, reporting she only has white coat syndrome. 2. Chronic tobacco abuse 3. RA Patient reports significant abdominal pain and right leg pain x 1 week. She was initially evaluated at [facility] last week. CT was obtained without acute findings. She presented to [facility] several days later with ongoing abdominal pain and was diagnosed with constipation and possible kidney stone and discharged. Last night patient had ongoing abdominal pain associated with SOB, diaphoresis and nausea. Due to progressive symptoms she returned to [facility] for evaluation. CTA of the chest was without acute findings and no PE. CT of the abdomen demo nstrated possible thickening of the lining of the stomach. She underwent EGD this morning which was without significant findings other than gastritis. PPI recommended. Since admission her BP has been significantly elevated. Troponin was also minimally elevated but remained flat. EKG on arrival demonstrated sinus tach with poor R wave progression, possible LVH. She denies chest pain. She denies recurrent SOB, diaphoresis. She notes mild/chronic LE edema. She denies palpitations, dizziness, fever or chills. No headache or vision changes. Patient reports she has lost a lot of weight over the last year or so, intentionally. However her BP has remained high. She does not frequently see her PCP. Currently patient resting in bed comfortably. Just returned from EGD. Awaiting lunch. Denies current symptoms. BP remains high. Allergies Allergy/AdvReac Type Severity Reaction Status Date / Time codeine Allergy Mild ITCH Verified 03/28/23 08:57 No Known Allergies Allergy Mild Verified 03/28/23 08:57 Home Medications Medication Instructions Recorded Confirmed Type duloxetine 60 mg capsule,delayed 60 mg PO DAILY 03/28/23 03/28/23 History release etodolac 500 mg tablet 500 mg PO BID 03/28/23 03/28/23 History hydrocodone 5 mg-acetaminophen 325 1 tab PO TID PRN Pain 03/28/23 03/28/23 History mg tablet leflunomide 10 mg tablet 10 mg PO DAILY 03/28/23 03/28/23 History methylprednisolone 4 mg tablets in 4 mg PO UD 03/28/23 03/28/23 History a dose pack Patient History Medical History (Updated 03/28/23 @ 13:17 by Keyana Flores PA-C) Encounter for pre-operative examination Kidney stones Rheumatoid arthritis Surgical History No significant past surgical history Social History Smoking Status: Current every day smoker Cigarettes Per Day: 5-10; Second Hand Exposure: No; Do You Dip or Chew Tobacco: No; Tobacco Cessation Education Requested by Patient: No Hx Alcohol Use: Yes Hx Substance Use: No Preferred Language: Arabic Communication Ability: Effective Hand Marker Required: No Beliefs That Will Affect Care: None marital status: Current Living Situation: Spouse Current Living Situation Comment: with current occupational status: employed Other Information That Helps Us Care for You: No Feels Safe at Home: Yes Safety Concerns: Feels Safe At This Time Assistive Devices: None Review of Systems Review of Systems: All systems reviewed & are unremarkable except as noted in HPI & below Physical Exam Constitutional: WD/WN, vitals as above + obese; no acute distress Neck: + thick neck Respiratory: normal respiratory effort, lungs clear to auscultation Cardiovascular: Rate/Rhythm: regular rate and regular rhythm Heart Sounds: no murmur Vessels: no JVD Extremities: + edema (trace right LE edema) Gastrointestinal (Abdomen): normal bowel sounds, soft, nontender, no hepatosplenomegaly Skin: no rashes, warm and dry Neurologic: PERRL, EOMI, accommodation nl, no face palsy, no dysarthria Results & Data Vital Signs (Past 12 Hours) Vital Signs Temp Pulse Pulse Resp BP BP BP 03/28/23 11:28 36.5 C 82 18 179/125 H 03/28/23 10:58 80 16 03/28/23 10:34 78 18 180/113 H 03/28/23 10:19 80 18 182/108 H 03/28/23 10:04 82 18 158/115 H 03/28/23 09:38 74 183/105 H 03/28/23 09:23 83 176/96 H 03/28/23 08:00 03/28/23 08:59 36.7 C 92 H 16 170/119 H 03/28/23 07:09 36.5 C 74 18 174/105 H 03/28/23 07:01 84 16 03/28/23 06:37 83 176/96 H 03/28/23 06:19 88 178/99 H 03/28/23 05:50 165/99 H 03/28/23 05:18 03/28/23 05:18 36.8 C 97 H 18 182/95 H 03/28/23 02:02 100 H 20 174/119 H 03/28/23 01:56 103 H Pulse Ox O2 Del Method 03/28/23 11:28 96 Room Air 03/28/23 10:58 98 Room Air 03/28/23 10:34 98 Room Air 03/28/23 10:19 98 Room Air 03/28/23 10:04 94 Room Air 03/28/23 09:38 03/28/23 09:23 03/28/23 08:00 Room Air 03/28/23 08:59 96 Room Air 03/28/23 07:09 94 Room Air 03/28/23 07:01 98 Room Air 03/28/23 06:37 03/28/23 06:19 03/28/23 05:50 03/28/23 05:18 Room Air 03/28/23 05:18 97 Room Air 03/28/23 02:02 100 Room Air 03/28/23 01:56 Laboratory Results Cardiac Enzymes 03/27/23 03/28/23 03/28/23 Range/Units 23:01 01:10 06:48 AST 14 (13-39) U/L Troponin I High Sens 21.0 H 26.2 H 23.0 H (0-14) pg/ml CBC 03/27/23 03/28/23 Range/Units 23:01 06:48 WBC 15.01 H 9.11 (4.8-10.8) K/ul RBC 5.70 H 5.35 (4.20-5.40) M/uL Hgb 16.8 H 15.5 (12.0-16.0) g/dl Hct 48.4 H 45.9 (37.0-47.0) % Plt Count 343 301 (130-400) K/uL Neut # (Auto) 10.66 H 6.24 (1.40-6.50) K/uL Lymph # (Auto) 3.10 2.03 (1.2-3.4) K/uL [place] # (Auto) 1.10 H 0.68 H (0.11-0.59) K/uL Eos # (Auto) 0.01 0.10 (0-0.50) K/uL Baso # (Auto) 0.08 0.04 (0-0.2) K/uL Comprehensive Metabolic Panel 03/27/23 03/28/23 Range/Units 23:01 06:48 Sodium 138 140 (136-145) mmol/L Potassium 3.3 L 3.3 L (3.5-5.1) mmol/L Chloride 104 109 H (98-107) mmol/L Carbon Dioxide 22 24 (21-32) mmol/L BUN 22 18 (6-23) mg/dl Creatinine 1.29 H 0.95 D (0.6-1.2) mg/dl Glucose 112 H 107 H (70-99(Fasting)) mg/dl Calcium 9.2 8.9 (8.6-10.3) mg/dl AST 14 (13-39) U/L ALT 12 (7-52) U/L Alkaline Phosphatase 111 H (34-104) U/L Total Protein 6.6 (6.0-8.3) gm/dl Albumin 4.3 (3.4-5.0) gm/dl Intake and Output 03/27/23 03/28/23 03/28/23 22:59 06:59 14:59 Intake Total 1000 / 1000 Balance 1000 / 1000 Intake: IV 1000 / 1000 Sodium Chloride 0.9% 1000ML 1, 1000 / 1000 000 ml @ 999 mls/hr IV .Q1H1M MARY CARMEN Rx#:[id number] Other: Other Intake Source npo Weight 97.8 kg 97.8 kg Weight Measurement Method Standing Scale Patient Weight 03/29/23 06:59 Weight 97.8 kg Diagnostic Findings Telemetry reviewed: NSR in the 70-90 bpm range. No concerning arrhythmias. EKG reviewed from admission: Sinus tachycardia Biatrial enlargement Poor R wave progression, consider anterior [place] vs. lead placement vs. LVH Abnormal ECG No previous ECGs available Chest CTA 03/27/23 21:45 Exam(s): CTA CHEST IV Amt: 116 ml optiray 350 EXAM: CT Angiography Chest With Intravenous Contrast CLINICAL HISTORY: Reason for exam: PE, sob, tachy. TECHNIQUE: Axial computed tomographic angiography images of the chest with intravenous contrast. CTDI is 81.54 mGy and DLP is 1743.43 mGy-cm. Automated exposure control was utilized for the study. A dose lowering technique was utilized adhering to the principles of ALARA. MIP reconstructed images were created and reviewed. COMPARISON: No relevant prior studies available. FINDINGS: Pulmonary arteries: Unremarkable. No acute pulmonary embolism. Aorta: No acute findings. No thoracic aortic aneurysm. Lungs: Unremarkable. No mass. No consolidation. Pleural space: Unremarkable. No focal infiltrate, pleural effusion, or pneumothorax. Heart: Mild cardiomegaly. No significant pericardial effusion. No evidence of RV dysfunction. Bones/joints: No acute fracture. No dislocation. Soft tissues: Unremarkable. Lymph nodes: Unremarkable. No enlarged lymph nodes. Liver: Hepatic steatosis. Stomach and bowel: Mild wall thickening of the proximal stomach measuring up to 2.4 cm. Upper GI endoscopy recommended. IMPRESSION: 1. No acute pulmonary embolism. 2. No focal infiltrate, pleural effusion, or pneumothorax. 3. Hepatic steatosis. 4. Mild wall thickening of the proximal stomach measuring up to 2.4 cm. Upper GI endoscopy recommended. Electronically signed by: Santo Enriquez MD 03/28/23 00:25 AM Chest X-Ray 03/27/23 21:45 XR chest 1V portable HISTORY: weakness COMPARISON: None. FINDINGS: The lungs are clear. Cardiac silhouette is normal in size. No pleural effusions. No pneumothorax. IMPRESSION: No acute process. ACT 112: Negative or not required by law. Electronically signed by: Venu Zuniga M.D. 03/28/2023 7:06 AM Medications Administered Current Inpatient Medications Acetaminophen (Acetaminophen 325 Mg Tab) 650 mg PO Q4H PRN PRN Reason: Pain or Fever Stop: 04/27/23 04:42 Hydrocodone Bitart/Acetaminophen (Hydrocodone/Acetamophen 5/325mg Tab) 1 tab PO TID PRN PRN Reason: Pain Stop: 04/11/23 04:42 Last Admin: 03/28/23 12:24 Dose: 1 tab Albuterol (Albut/Ipratrop 3mg/0.5mg Neb 3 Ml Vial) 3 ml NEB QIDR [facility]; Protocol Stop: 04/27/23 06:59 Last Admin: 03/28/23 10:57 Dose: 3 ml Duloxetine HCl (Duloxetine Hcl 60 Mg Cap) 60 mg PO DAILY [facility] Stop: 04/27/23 08:59 Last Admin: 03/28/23 07:38 Dose: 60 mg Sodium Chloride (Nss 1000ml) 1,000 mls @ 80 mls/hr IV .[id number] [facility] Stop: 03/28/23 17:29 Last Admin: 03/28/23 05:46 Dose: 80 mls/hr Famotidine 20 mg/ Syringe 5 mls @ 2.5 mls/min IV BID [facility] Stop: 04/27/23 08:59 Last Admin: 03/28/23 07:38 Dose: 2.5 mls/min Labetalol HCl (Labetalol Hcl Iv 5 Mg/Ml 20ml) 10 mg IV Q4H PRN PRN Reason: Hypertension Stop: 04/27/23 05:52 Last Admin: 03/28/23 09:23 Dose: 10 mg Losartan Potassium (Losartan Potassium 25 Mg Tab) 25 mg PO QAM [facility] Stop: 04/27/23 11:44 Last Admin: 03/28/23 12:22 Dose: 25 mg Miscellaneous (Remove Nicoderm Patch) 1 each N/A DAILY@0859 [facility] Stop: 04/28/23 08:58 Nicotine (Nicotine 14 Mg/24 Hr Patch) 14 mg TD DAILY [facility] Stop: 04/27/23 05:59 Last Admin: 03/28/23 06:42 Dose: 14 mg Nitroglycerin (Nitroglycerin Sl 0.4 Mg/Tab Tab) 0.4 mg SL Q5M PRN PRN Reason: Chest Pain Stop: 04/27/23 04:42 Ondansetron HCl (Ondansetron Inj 2 Mg/Ml 2 Ml Vial) 4 mg IV Q6H PRN PRN Reason: Nausea Stop: 04/27/23 04:42
--- NOTE | 2023-03-28 15:09 | Electrocardiogram Report ---
Test Reason : Blood Pressure : / mmHG Vent. Rate : 079 BPM Atrial Rate : 079 BPM P-R Int : 132 ms QRS Dur : 084 ms QT Int : 394 ms P-R-T Axes : 056 -19 049 degrees QTc Int : 451 ms Normal sinus rhythm Left atrial enlargement Poor R wave progression, consider anterior PR vs. lead placement vs. LVH Abnormal ECG When compared with ECG of 27-MAR-2023 21:49, No significant change Confirmed by Mark Scanlon ([id number]) on 03/28/2023 3:09:05 PM Referred By: REFERRED SELF Confirmed By:Mark Scanlon
--- NOTE | 2023-03-28 16:27 | Hospitalist Progress Note ---
Date of Service March 28, 2023 Assessment & Plan (1) Acute dyspnea: Plan: Unclear etiology. May be related to her HTN urgency. CTA chest negative for PE or pulmonary edema Patient with long standing smoking history. Smokes daily since age of 14, down to 1/4 pack per day currently Will ask for Pulmonology consult, patient should have OP PFTs for further assessment. Consider trial of inhalers to see if dyspnea is improved? Continue with albuterol PRN for now. (2) Elevated troponin: Plan: Appreciate Cardiology input. In setting of HTN urgency. TTE shows mild concentric LVH, EF 60%. grade 1 diastolic dysfunction (3) Upper abdominal pain: Plan: EGD today shows gastritis Patient on NSAIDs, also recently started on steroid for back pain. Both were discontinued. continue protonix Avoid NSAIDs going forward Plan Disposition- likely discharge tomorrow Admission and Anticipated Discharge Date Admission Date: March 28, 2023 Subjective Denies wheezing but felt dyspneic walking around which is not her usual Dyspnea is not as severe as on Sunday BP remains elevated Chronic lower back pain and right side sciatic Review of Systems Review of Systems: as above Physical Exam Physical Exam: Appears stated age, no acute distress, non toxic Respiratory: No wheezing/rhonchi/rales Cardiovascular: tachycardic but regular, no murmurs/rubs/gallops Gastrointestinal (Abdomen): soft, non tender Musculoskeletal: No edema Neurologic: awake, alert, spontaneously moving extremities Results & Data Results & Data Vital Signs (Past 12 Hours) Vital Signs Temp Pulse Pulse Resp BP BP BP 03/28/23 16:03 103 H 03/28/23 15:17 36.9 C 83 20 173/124 H 03/28/23 11:28 36.5 C 82 18 179/125 H 03/28/23 10:58 80 16 03/28/23 10:34 78 18 180/113 H 03/28/23 10:19 80 18 182/108 H 03/28/23 10:04 82 18 158/115 H 03/28/23 09:38 74 183/105 H 03/28/23 09:23 83 176/96 H 03/28/23 08:00 03/28/23 08:59 36.7 C 92 H 16 170/119 H 03/28/23 07:09 36.5 C 74 18 174/105 H 03/28/23 07:01 84 16 03/28/23 06:37 83 176/96 H 03/28/23 06:19 88 178/99 H 03/28/23 05:50 165/99 H 03/28/23 05:18 03/28/23 05:18 36.8 C 97 H 18 182/95 H Pulse Ox O2 Del Method 03/28/23 16:03 03/28/23 15:17 96 Room Air 03/28/23 11:28 96 Room Air 03/28/23 10:58 98 Room Air 03/28/23 10:34 98 Room Air 03/28/23 10:19 98 Room Air 03/28/23 10:04 94 Room Air 03/28/23 09:38 03/28/23 09:23 03/28/23 08:00 Room Air 03/28/23 08:59 96 Room Air 03/28/23 07:09 94 Room Air 03/28/23 07:01 98 Room Air 03/28/23 06:37 03/28/23 06:19 03/28/23 05:50 03/28/23 05:18 Room Air 03/28/23 05:18 97 Room Air
[2023-03-28] MEDS: carvediloL 3.125 MG TAB PO SCH (16:59)
--- NOTE | 2023-03-28 17:21 | Pulmonary Consultation ---
Date of Consultation March 28, 2023 Assessment & Plan (1) Hypertension: I was consulted to evaluate the patient for dyspnea. I do not think that there is any primary pathologic pulmonary process. In speaking to the patient she was sitting up in no distress at all. She was on room air. She had no expiratory wheezing or difficulty speaking. She was able to speak in full sentences and was not in any extremis. The CT scan of her chest does not show any pulmonary embolism or pneumonia or signs of emphysema at this time. On physical exam she has no stridor. She has no history of asthma or COPD now as far as she could tell. She never had a history of childhood asthma. She does snore but does not seem that she has severe obstructive sleep apnea per symptoms. She does not report any gastroesophageal reflux disease or sour taste in her mouth. I am having a difficult time discerning the cause of her shortness of breath and by process of exclusion can conclude that it was possibly due to anxiety over her other symptoms. I am concerned about her significant hypertension and the mild elevation of her troponins. There is no evidence of acute congestive heart failure because of that. The hypertension could have been due to her anxiety and pain as well but may have caused other side effects. I have encouraged the patient to stop smoking. If this gastric wall thickening is concerning for a gastric cancer there is an association with smoking. It is also important that she stop smoking for future lung health. She does occasionally cough and produces white phlegm which has been going on for quite some time even years and is likely related to her smoking and is nothing acute. I am concerned about her sciatica and the persistence of her pain. On CT scan there is a lot of back arthritis and lower thoracic upper lumbar bony deformity. 1 can consider an MRI specifically of her back to look for nerve impingement. On CT scan there is no evidence of an abdominal aortic aneurysm and there is no evidence of an aortic dissection. In conclusion, other than smoking cessation I do not think that there is a specific pulmonary pathology that is contributing to her current compilation of symptoms. (2) Abnormal CT of the abdomen: (3) Acute dyspnea: History of Present Illness Reason for Consultation: Assess dyspnea on admission. 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 The patient has a history of rheumatoid arthritis and fibromyalgia and chronic Lyme for their 15 years. She has been receiving cortisone injections in both of her knees every 6 months. But her ladle cleaner recently moved from the practice so the patient missed her last injection round. Also, there was a change in her work schedule which she thought exacerbated her pain. Then she developed pain in her back radiating down both of her legs causing a lot of immobility. Some of the pain started to migrate and there was a component of abdominal pain. She presented initially to an outside hospital and was initially read as appendicitis. But the images were sent to a referring surgeon who thought that there was an over read of those images and that a surgical appendicitis was not seen on the imaging and that antibiotics and fluid administration were all that was necessary. She was discharged. Then she had further symptoms of migratory pain and the pain moved around her right flank. It was again excruciating. She represented to the emergency room. A abdominal CT scan did not show any appendicitis. There was a left renal stone but not c ausing obstruction and associated with the cyst. It was not thought to be causing her severe symptoms. There was poor visualization of her stomach at that time but a lot of fecal loading. This was on March 24. She went home and her symptoms changed into some significant shortness of breath. She had difficulty breathing and catching her breath and we presented to the emergency room yesterday. A CT angiogram was performed which did not show any pulmonary embolism or consolidation or pneumothorax. On this scan her fecal loading was resolved but now were able to see her stomach which was not dilated but had an area of significant gastric wall thickening that was concerning. She was admitted and had an endoscopy and biopsies were obtained on an EGD that was done today. Allergies Allergy/AdvReac Type Severity Reaction Status Date / Time codeine Allergy Mild ITCH Verified 03/28/23 08:57 No Known Allergies Allergy Mild Verified 03/28/23 08:57 Home Medications Medication Instructions Recorded Confirmed Type duloxetine 60 mg capsule,delayed 60 mg PO DAILY 03/28/23 03/28/23 History release etodolac 500 mg tablet 500 mg PO BID 03/28/23 03/28/23 History hydrocodone 5 mg-acetaminophen 325 1 tab PO TID PRN Pain 03/28/23 03/28/23 History mg tablet leflunomide 10 mg tablet 10 mg PO DAILY 03/28/23 03/28/23 History methylprednisolone 4 mg tablets in 4 mg PO UD 03/28/23 03/28/23 History a dose pack Patient History Medical History Encounter for pre-operative examination Kidney stones Rheumatoid arthritis Surgical History No significant past surgical history Social History Smoking Status: Current every day smoker Cigarettes Per Day: 5-10; Second Hand Exposure: No; Do You Dip or Chew Tobacco: No; Tobacco Cessation Education Requested by Patient: No Hx Alcohol Use: Yes Hx Substance Use: No Preferred Language: Estonian Communication Ability: Effective Packing Room Supervisor Required: No Beliefs That Will Affect Care: None marital status: Current Living Situation: Spouse Current Living Situation Comment: with current occupational status: employed Other Information That Helps Us Care for You: No Feels Safe at Home: Yes Safety Concerns: Feels Safe At This Time Assistive Devices: None Review of Systems Review of Systems: The patient right now is not having any shortness of breath. There is no wheezing or stridor. No cough or phlegm production no hemoptysis or hematemesis. No arm or jaw pain. No headache or change in vision. There is still some discomfort in her legs. She does snore but is not thought to snort himself awake. She does not have excessive daytime somnolence and does not fall asleep while driving or speaking with people. Physical Exam Physical Exam: The patient is awake alert and interactive. She is moving all of her extremities. Head is nontraumatic extraocular muscles intact pupils equal round reactive sclera nonicteric. Neck is supple with adenopathy or thyromegaly. Lungs have some mild kyphosis clear without any wheezing no evidence of consolidation. Some point tenderness in her lower back which is reproducible. No flank tenderness. Extremities without clubbing cyanosis or edema. Some central obesity. Results & Data Results & Data Vital Signs (Past 12 Hours) Vital Signs Temp Pulse Pulse Resp BP BP BP 03/28/23 16:03 103 H 03/28/23 15:17 36.9 C 83 20 173/124 H 03/28/23 11:28 36.5 C 82 18 179/125 H 03/28/23 10:58 80 16 03/28/23 10:34 78 18 180/113 H 03/28/23 10:19 80 18 182/108 H 03/28/23 10:04 82 18 158/115 H 03/28/23 09:38 74 183/105 H 03/28/23 09:23 83 176/96 H 03/28/23 08:00 03/28/23 08:59 36.7 C 92 H 16 170/119 H 03/28/23 07:09 36.5 C 74 18 174/105 H 03/28/23 07:01 84 16 03/28/23 06:37 83 176/96 H 03/28/23 06:19 88 178/99 H 03/28/23 05:50 165/99 H 03/28/23 05:18 03/28/23 05:18 36.8 C 97 H 18 182/95 H Pulse Ox O2 Del Method 03/28/23 16:03 03/28/23 15:17 96 Room Air 03/28/23 11:28 96 Room Air 03/28/23 10:58 98 Room Air 03/28/23 10:34 98 Room Air 03/28/23 10:19 98 Room Air 03/28/23 10:04 94 Room Air 03/28/23 09:38 03/28/23 09:23 03/28/23 08:00 Room Air 03/28/23 08:59 96 Room Air 03/28/23 07:09 94 Room Air 03/28/23 07:01 98 Room Air 03/28/23 06:37 03/28/23 06:19 03/28/23 05:50 03/28/23 05:18 Room Air 03/28/23 05:18 97 Room Air Laboratory Results 03/27/23 03/27/23 03/27/23 22:36 23:01 23:01 WBC 15.01 H RBC 5.70 H Hgb 16.8 H Hct 48.4 H MCV 84.9 MCH 29.5 MCHC 34.7 RDW Std Deviation 40.9 RDW Coeff of Krystina 13.2 Plt Count 343 MPV 10.1 Immature Gran % (Auto) 0.4 Neut % (Auto) 71.0 Lymph % (Auto) 20.7 [place] % (Auto) 7.3 Eos % (Auto) 0.1 Baso % (Auto) 0.5 Neut # (Auto) 10.66 H Lymph # (Auto) 3.10 [place] # (Auto) 1.10 H Eos # (Auto) 0.01 Baso # (Auto) 0.08 Immature Gran # (Auto) 0.06 Sodium 138 Potassium 3.3 L Chloride 104 Carbon Dioxide 22 Anion Gap 12 H BUN 22 Creatinine 1.29 H Est Cr Clr Drug Dosing Not Reportable Est GFR ( Amer) 55.9 Est GFR (Non-Af Amer) 48.2 BUN/Creatinine Ratio 17.1 Glucose 112 H Calcium 9.2 Magnesium 2.0 Total Bilirubin 0.7 AST 14 ALT 12 Alkaline Phosphatase 111 H Total Creatine Kinase 76 Troponin I High Sens 21.0 H Total Protein 6.6 Albumin 4.3 Globulin 2.3 L Albumin/Globulin Ratio 1.9 TSH Urine Color Urine Appearance Urine pH Ur Specific [place] Urine Protein Urine Glucose (UA) Urine Ketones Urine Blood Urine Nitrite Urine Bilirubin Urine Urobilinogen Ur Leukocyte Esterase Urine WBC (Auto) Urine RBC (Auto) U Hyaline Cast (Auto) U Epithel Cells (Auto) Urine Bacteria (Auto) SARS-CoV-2 (PCR) NEGATIVE 03/27/23 03/28/23 03/28/23 23:01 01:10 02:28 WBC RBC Hgb Hct MCV MCH MCHC RDW Std Deviation RDW Coeff of Krystina Plt Count MPV Immature Gran % (Auto) Neut % (Auto) Lymph % (Auto) [place] % (Auto) Eos % (Auto) Baso % (Auto) Neut # (Auto) Lymph # (Auto) [place] # (Auto) Eos # (Auto) Baso # (Auto) Immature Gran # (Auto) Sodium Potassium Chloride Carbon Dioxide Anion Gap BUN Creatinine Est Cr Clr Drug Dosing Est GFR ( Amer) Est GFR (Non-Af Amer) BUN/Creatinine Ratio Glucose Calcium Magnesium Total Bilirubin AST ALT Alkaline Phosphatase Total Creatine Kinase Troponin I High Sens 26.2 H Total Protein Albumin Globulin Albumin/Globulin Ratio TSH 1.540 Urine Color Yellow Urine Appearance Clear Urine pH 6.0 Ur Specific [place] > 1.045 H Urine Protein Trace H Urine Glucose (UA) Negative Urine Ketones Negative Urine Blood 3+ H Urine Nitrite Negative Urine Bilirubin Negative Urine Urobilinogen Negative Ur Leukocyte Esterase Negative Urine WBC (Auto) >30 H Urine RBC (Auto) >30 H U Hyaline Cast (Auto) 0 U Epithel Cells (Auto) 10-20 H Urine Bacteria (Auto) Negative SARS-CoV-2 (PCR) 03/28/23 03/28/23 03/28/23 06:48 06:48 06:48 WBC 9.11 RBC 5.35 Hgb 15.5 Hct 45.9 MCV 85.8 MCH 29.0 MCHC 33.8 RDW Std Deviation 40.8 RDW Coeff of Krystina 13.2 Plt Count 301 MPV 10.1 Immature Gran % (Auto) 0.2 Neut % (Auto) 68.5 Lymph % (Auto) 22.3 [place] % (Auto) 7.5 Eos % (Auto) 1.1 Baso % (Auto) 0.4 Neut # (Auto) 6.24 Lymph # (Auto) 2.03 [place] # (Auto) 0.68 H Eos # (Auto) 0.10 Baso # (Auto) 0.04 Immature Gran # (Auto) 0.02 Sodium 140 Potassium 3.3 L Chloride 109 H Carbon Dioxide 24 Anion Gap 7 BUN 18 Creatinine 0.95 D Est Cr Clr Drug Dosing 80.5 Est GFR ( Amer) 80.9 Est GFR (Non-Af Amer) 69.8 BUN/Creatinine Ratio 18.9 Glucose 107 H Calcium 8.9 Magnesium 2.0 Total Bilirubin AST ALT Alkaline Phosphatase Total Creatine Kinase Troponin I High Sens 23.0 H Total Protein Albumin Globulin Albumin/Globulin Ratio TSH Urine Color Urine Appearance Urine pH Ur Specific [place] Urine Protein Urine Glucose (UA) Urine Ketones Urine Blood Urine Nitrite Urine Bilirubin Urine Urobilinogen Ur Leukocyte Esterase Urine WBC (Auto) Urine RBC (Auto) U Hyaline Cast (Auto) U Epithel Cells (Auto) Urine Bacteria (Auto) SARS-CoV-2 (PCR) 03/28/23 12:52 WBC RBC Hgb Hct MCV MCH MCHC RDW Std Deviation RDW Coeff of Krystina Plt Count MPV Immature Gran % (Auto) Neut % (Auto) Lymph % (Auto) [place] % (Auto) Eos % (Auto) Baso % (Auto) Neut # (Auto) Lymph # (Auto) [place] # (Auto) Eos # (Auto) Baso # (Auto) Immature Gran # (Auto) Sodium Potassium Chloride Carbon Dioxide Anion Gap BUN Creatinine Est Cr Clr Drug Dosing Est GFR ( Amer) Est GFR (Non-Af Amer) BUN/Creatinine Ratio Glucose Calcium Magnesium Total Bilirubin AST ALT Alkaline Phosphatase Total Creatine Kinase Troponin I High Sens 18.0 H D Total Protein Albumin Globulin Albumin/Globulin Ratio TSH Urine Color Urine Appearance Urine pH Ur Specific [place] Urine Protein Urine Glucose (UA) Urine Ketones Urine Blood Urine Nitrite Urine Bilirubin Urine Urobilinogen Ur Leukocyte Esterase Urine WBC (Auto) Urine RBC (Auto) U Hyaline Cast (Auto) U Epithel Cells (Auto) Urine Bacteria (Auto) SARS-CoV-2 (PCR) Diagnostic Findings Laboratory Results WBC 9.11 K/ul (4.8-10.8) 03/28/23 06:48 RBC 5.35 M/uL (4.20-5.40) 03/28/23 06:48 Hgb 15.5 g/dl (12.0-16.0) 03/28/23 06:48 Hct 45.9 % (37.0-47.0) 03/28/23 06:48 MCV 85.8 fL (80.0-100.0) 03/28/23 06:48 MCH 29.0 pg (25.0-34.0) 03/28/23 06:48 MCHC 33.8 g/dL (32.0-36.0) 03/28/23 06:48 RDW Std Deviation 40.8 fL (36.4-46.3) 03/28/23 06:48 RDW Coeff of Krystina 13.2 % (11.5-14.5) 03/28/23 06:48 Plt Count 301 K/uL (130-400) 03/28/23 06:48 MPV 10.1 fL (9.4-12.4) 03/28/23 06:48 Immature Gran % (Auto) 0.2 % 03/28/23 06:48 Neut % (Auto) 68.5 % 03/28/23 06:48 Lymph % (Auto) 22.3 % 03/28/23 06:48 [place] % (Auto) 7.5 % 03/28/23 06:48 Eos % (Auto) 1.1 % 03/28/23 06:48 Baso % (Auto) 0.4 % 03/28/23 06:48 Neut # (Auto) 6.24 K/uL (1.40-6.50) 03/28/23 06:48 Lymph # (Auto) 2.03 K/uL (1.2-3.4) 03/28/23 06:48 [place] # (Auto) 0.68 K/uL (0.11-0.59) H 03/28/23 06:48 Eos # (Auto) 0.10 K/uL (0-0.50) 03/28/23 06:48 Baso # (Auto) 0.04 K/uL (0-0.2) 03/28/23 06:48 Immature Gran # (Auto) 0.02 K/uL (0.01-0.20) 03/28/23 06:48 Sodium 140 mmol/L (136-145) 03/28/23 06:48 Potassium 3.3 mmol/L (3.5-5.1) L 03/28/23 06:48 Chloride 109 mmol/L (98-107) H 03/28/23 06:48 Carbon Dioxide 24 mmol/L (21-32) 03/28/23 06:48 Anion Gap 7 (3-11) 03/28/23 06:48 BUN 18 mg/dl (6-23) 03/28/23 06:48 Creatinine 0.95 mg/dl (0.6-1.2) D 03/28/23 06:48 Est Cr Clr Drug Dosing 80.5 ml/min 03/28/23 06:48 Est GFR ( Amer) 80.9 ml/min 03/28/23 06:48 Est GFR (Non-Af Amer) 69.8 ml/min 03/28/23 06:48 BUN/Creatinine Ratio 18.9 (10-20) 03/28/23 06:48 Glucose 107 mg/dl (70-99(Fasting)) H 03/28/23 06:48 Calcium 8.9 mg/dl (8.6-10.3) 03/28/23 06:48 Magnesium 2.0 mg/dl (1.7-2.4) 03/28/23 06:48 Total Bilirubin 0.7 mg/dl (0.2-1.0) 03/27/23 23:01 AST 14 U/L (13-39) 03/27/23 23:01 ALT 12 U/L (7-52) 03/27/23 23:01 Alkaline Phosphatase 111 U/L (34-104) H 03/27/23 23:01 Total Creatine Kinase 76 U/L (26-192) 03/27/23 23:01 Troponin I High Sens 18.0 pg/ml (0-14) H D 03/28/23 12:52 Total Protein 6.6 gm/dl (6.0-8.3) 03/27/23 23:01 Albumin 4.3 gm/dl (3.4-5.0) 03/27/23 23:01 Globulin 2.3 gm/dl (2.5-4.0) L 03/27/23 23:01 Albumin/Globulin Ratio 1.9 (0.9-2) 03/27/23 23:01 TSH 1.540 uIu/ml (0.300-4.500) 03/27/23 23:01 Urine Color Yellow 03/28/23 02:28 Urine Appearance Clear (Clear) 03/28/23 02:28 Urine pH 6.0 (4.5-7.5) 03/28/23 02:28 Ur Specific [place] > 1.045 (1.000-1.030) H 03/28/23 02:28 Urine Protein Trace (Negative) H 03/28/23 02:28 Urine Glucose (UA) Negative (Negative) 03/28/23 02:28 Urine Ketones Negative (Negative) 03/28/23 02:28 Urine Blood 3+ (Negative) H 03/28/23 02:28 Urine Nitrite Negative (Negative) 03/28/23 02:28 Urine Bilirubin Negative (Negative) 03/28/23 02:28 Urine Urobilinogen Negative (Negative) 03/28/23 02:28 Ur Leukocyte Esterase Negative (Negative) 03/28/23 02:28 Urine WBC (Auto) >30 /hpf (0-5) H 03/28/23 02:28 Urine RBC (Auto) >30 /hpf (0-4) H 03/28/23 02:28 U Hyaline Cast (Auto) 0 /lpf (0-5) 03/28/23 02:28 U Epithel Cells (Auto) 10-20 /lpf (0-5) H 03/28/23 02:28 Urine Bacteria (Auto) Negative (Negative) 03/28/23 02:28 SARS-CoV-2 (PCR) NEGATIVE (Negative) 03/27/23 22:36 Impressions Chest CTA 03/27/23 21:45 Exam(s): CTA CHEST IV Amt: 116 ml optiray 350 EXAM: CT Angiography Chest With Intravenous Contrast CLINICAL HISTORY: Reason for exam: PE, sob, tachy. TECHNIQUE: Axial computed tomographic angiography images of the chest with intravenous contrast. CTDI is 81.54 mGy and DLP is 1743.43 mGy-cm. Automated exposure control was utilized for the study. A dose lowering technique was utilized adhering to the principles of ALARA. MIP reconstructed images were created and reviewed. COMPARISON: No relevant prior studies available. FINDINGS: Pulmonary arteries: Unremarkable. No acute pulmonary embolism. Aorta: No acute findings. No thoracic aortic aneurysm. Lungs: Unremarkable. No mass. No consolidation. Pleural space: Unremarkable. No focal infiltrate, pleural effusion, or pneumothorax. Heart: Mild cardiomegaly. No significant pericardial effusion. No evidence of RV dysfunction. Bones/joints: No acute fracture. No dislocation. Soft tissues: Unremarkable. Lymph nodes: Unremarkable. No enlarged lymph nodes. Liver: Hepatic steatosis. Stomach and bowel: Mild wall thickening of the proximal stomach measuring up to 2.4 cm. Upper GI endoscopy recommended. IMPRESSION: 1. No acute pulmonary embolism. 2. No focal infiltrate, pleural effusion, or pneumothorax. 3. Hepatic steatosis. 4. Mild wall thickening of the proximal stomach measuring up to 2.4 cm. Upper GI endoscopy recommended. Electronically signed by: Santo Enriquez MD 03/28/23 00:25 AM Chest X-Ray 03/27/23 21:45 XR chest 1V portable HISTORY: weakness COMPARISON: None. FINDINGS: The lungs are clear. Cardiac silhouette is normal in size. No pleural effusions. No pneumothorax. IMPRESSION: No acute process. ACT 112: Negative or not required by law. Electronically signed by: Venu Zuniga M.D. 03/28/2023 7:06 AM Medications Administered Current Inpatient Medications Acetaminophen (Acetaminophen 325 Mg Tab) 650 mg PO Q4H PRN PRN Reason: Pain or Fever Stop: 04/27/23 04:42 Hydrocodone Bitart/Acetaminophen (Hydrocodone/Acetamophen 5/325mg Tab) 1 tab PO TID PRN PRN Reason: Pain Stop: 04/11/23 04:42 Last Admin: 03/28/23 12:24 Dose: 1 tab Albuterol (Albut/Ipratrop 3mg/0.5mg Neb 3 Ml Vial) 3 ml NEB QIDR [facility]; Protocol Stop: 04/27/23 06:59 Last Admin: 03/28/23 15:34 Dose: Not Given Carvedilol (Carvedilol 3.125 Mg Tab) 3.125 mg PO BIDM [facility] Stop: 04/27/23 16:59 Last Admin: 03/28/23 16:59 Dose: 3.125 mg Duloxetine HCl (Duloxetine Hcl 60 Mg Cap) 60 mg PO DAILY [facility] Stop: 04/27/23 08:59 Last Admin: 03/28/23 07:38 Dose: 60 mg Heparin Sodium (Porcine) (Heparin Sod 5,000 Unit/0.5 Ml Vial) 5,000 units SQ Q12 [facility] Stop: 04/27/23 20:59 Labetalol HCl (Labetalol Hcl Iv 5 Mg/Ml 20ml) 10 mg IV Q4H PRN PRN Reason: Hypertension Stop: 04/27/23 05:52 Last Admin: 03/28/23 09:23 Dose: 10 mg Losartan Potassium (Losartan Potassium 25 Mg Tab) 25 mg PO QAM [facility] Stop: 04/27/23 11:44 Last Admin: 03/28/23 12:22 Dose: 25 mg Miscellaneous (Remove Nicoderm Patch) 1 each N/A DAILY@0859 [facility] Stop: 04/28/23 08:58 Nicotine (Nicotine 14 Mg/24 Hr Patch) 14 mg TD DAILY [facility] Stop: 04/27/23 05:59 Last Admin: 03/28/23 06:42 Dose: 14 mg Nitroglycerin (Nitroglycerin Sl 0.4 Mg/Tab Tab) 0.4 mg SL Q5M PRN PRN Reason: Chest Pain Stop: 04/27/23 04:42 Ondansetron HCl (Ondansetron Inj 2 Mg/Ml 2 Ml Vial) 4 mg IV Q6H PRN PRN Reason: Nausea Stop: 04/27/23 04:42 Pantoprazole Sodium (Pantoprazole 40 Mg Tab) 40 mg PO QAM [facility] Stop: 04/28/23 08:59 PG Care Time/CCT Total # of Minutes Spent Total Time Spent with Patient: Total time spent is greater than 50% in coordination of care (as documented) at patient's floor/unit and/or counseling patient: Coding Level of Care Code 02287 IN/OBS CONSULT LVL 2,35M History Problem Focused Exam Problem Focused Medical Decision Making Low Complexity Diagnoses Hypertension I10 Abnormal CT of the abdomen R93.5 Acute dyspnea R06.00 Time Spent (min) 35
[2023-03-28] MEDS: HEPARIN SOD 5,000 UNIT/0.5 ML VIAL SQ SCH (21:31)
[2023-03-29] MEDS: LABETALOL HCL IV 5 MG/ML 20ML IV PRN ×2 (04:55→20:23)
[2023-03-29] MEDS: HYDROCODONE/ACETAMOPHEN 5/325MG TAB PO PRN ×2 (05:41→15:05)
[2023-03-29] MEDS: ALBUT/IPRATROP 3MG/0.5MG NEB 3 ML VIAL NEB SCH ×2 (06:59→11:18)
[2023-03-29 07:48] LABS: BUN Creatinine Ratio 15.5 (10-20); Calcium 9.1 mg/dl (8.6-10.3); Creatinine Clr Calc Pharmacy 90.3 ml/min; Est GFR (African American) 93.9 ml/min; Magnesium 2.1 mg/dl (1.7-2.4); Potassium 3.8 mmol/L (3.5-5.1)
[2023-03-29] MEDS: carvediloL 3.125 MG TAB PO SCH ×2 (08:50→17:29)
[2023-03-29] MEDS: HEPARIN SOD 5,000 UNIT/0.5 ML VIAL SQ SCH ×2 (08:51→20:13)
[2023-03-29] MEDS: NICOTINE 14 MG/24 HR PATCH TD SCH (08:51)
[2023-03-29] MEDS: PANTOprazole 40 MG TAB PO SCH (08:51)
[2023-03-29] MEDS: DULoxetine HCL 60 MG CAP PO SCH (08:51)
[2023-03-29] MEDS: LOSARTAN POTASSIUM 25 MG TAB PO SCH (08:51)
--- NOTE | 2023-03-29 10:02 | Consultation ---
Date of Consultation March 29, 2023 Assessment & Plan (1) Right lumbar radiculitis: 48-year-old with roughly a 4-week history of right lumbar and right lower extremity pain. We will start with an MRI of the lumbar spine without contrast. She is comfortable with this plan. We will make further conditions based upon MRI review. Again in light of her current acute medical issues treatment is most likely conservative. She is neurologically intact. History of Present Illness Reason for Consultation: back and right leg pain Attending Physician: Blaise Louis MD History of Present Illness Malinda is a pleasant 48-year-old female who has had back and right lower extremity pain since early March of this year. No specific accident, trauma, fall. It occasionally radiates into the left but right is dominant. She is unable able to give me a specific pattern of pain affecting her right lower extremity but states it extends into the heel. It is reproduced with standing. She reports nothing really is palliative. Denies bowel or bladder dysfunction or perineum numbness. She since early March has now been ambulating with the use of a cane which is new for her. She states at home she has been taking Endocet and Tylenol which is part of her normal rheumatology medications. She is also on Cymbalta. She has chronic Lyme's and fibromyalgia as well as rheumatoid arthritis. She follows with Dr. Benavidez for rheumatology. Over the past several weeks she has not had any physical therapy, home child care provider, massage therapy or pain management. She presented to the ER on March 24 with complaint of dyspnea. She has been admitted since. Currently undergoing a work-up including pulmonology consult. She elevated troponins as well. Cardiology has been consulted. PE has been ruled out on CTA scan.She has also had a recent EGD during this hospital stay which revealed gastritis. Gastroenterology consult also performed. Allergies Allergy/AdvReac Type Severity Reaction Status Date / Time codeine Allergy Mild ITCH Verified 03/28/23 08:57 No Known Allergies Allergy Mild Verified 03/28/23 08:57 Home Medications Medication Instructions Recorded Confirmed Type duloxetine 60 mg capsule,delayed 60 mg PO DAILY 03/28/23 03/28/23 History release etodolac 500 mg tablet 500 mg PO BID 03/28/23 03/28/23 History hydrocodone 5 mg-acetaminophen 325 1 tab PO TID PRN Pain 03/28/23 03/28/23 History mg tablet leflunomide 10 mg tablet 10 mg PO DAILY 03/28/23 03/28/23 History methylprednisolone 4 mg tablets in 4 mg PO UD 03/28/23 03/28/23 History a dose pack Patient History Medical History Encounter for pre-operative examination Kidney stones Rheumatoid arthritis Surgical History No significant past surgical history Social History Smoking Status: Current every day smoker Cigarettes Per Day: 5-10; Second Hand Exposure: No; Do You Dip or Chew Tobacco: No; Tobacco Cessation Education Requested by Patient: No Hx Alcohol Use: Yes Hx Substance Use: No Preferred Language: Bengali Communication Ability: Effective Multi Care Technician Required: No Beliefs That Will Affect Care: None marital status: Current Living Situation: Spouse Current Living Situation Comment: with current occupational status: employed Other Information That Helps Us Care for You: No Feels Safe at Home: Yes Safety Concerns: Feels Safe At This Time Assistive Devices: None Review of Systems Review of Systems: All systems reviewed & are unremarkable except as noted in HPI & below Physical Exam Physical Exam: She sitting on the edge of the bed with her . She is in no acute distress. She is cooperative with exam. Alert and oriented x3 She has negative logrolling bilateral lower EXTR Negative straight leg raising bilateral lower extremities Motor testing is 5/5 bilateral EHL, dorsiflexion, plantarflexion, quadriceps, hamstrings, hip flexors, hip abductor's and hip adductor No evidence of ankle clonus bilaterally She is nontender to palpation of the midline thoracic and lumbar spine She has extreme tenderness over the right sciatic notch. Nontender on the left. Results & Data Vital Signs (Past 12 Hours) Vital Signs Temp Pulse Pulse Resp BP BP BP 03/29/23 08:06 36.6 C 73 16 166/98 H 03/29/23 06:00 73 03/29/23 06:59 84 16 03/29/23 05:10 92 H 164/97 H 03/29/23 04:55 94 H 173/110 H 03/29/23 04:00 36.5 C 87 18 196/118 H 03/28/23 22:01 73 03/28/23 23:17 36.5 C 87 18 145/91 H 03/28/23 23:12 Pulse Ox O2 Del Method 03/29/23 08:06 94 Room Air 03/29/23 06:00 03/29/23 06:59 96 Room Air 03/29/23 05:10 03/29/23 04:55 03/29/23 04:00 98 Room Air 03/28/23 22:01 03/28/23 23:17 96 Room Air 03/28/23 23:12 Room Air
[2023-03-29] MEDS ORDERED: ALBUT/IPRATROP 3MG/0.5MG NEB 3 ML VIAL NEB PRN (11:18)
[2023-03-29] MEDS ORDERED: LOSARTAN POTASSIUM 25 MG TAB PO ONE (12:28)
--- NOTE | 2023-03-29 12:33 | Cardiology Progress Note ---
Date of Service March 29, 2023 Assessment & Plan (1) Hypertension: (2) Upper abdominal pain: (3) Elevated troponin: Plan Patient admitted with multitude of symptoms including abdominal pain, SOB, leg pain. She had been to ER 3 different times for similar complaints. CT of the abdomen revealed possible gastric wall thickening. EGD today demonstrated only mild gastritis. Cardio consulted for HTN and Borderline elevated troponin on admission, which was flat x3, and likely due to significantly uncontrolled hypertension. Per review of outpatient records, patient has a long history of hypertension that has not been treated. She was on lisinopril 20+ years ago and never resumed after . She did develop CHACHO induced cough with it. Losartan 25 mg and carvedilol 3.125 mg BID added yesterday. Echo with preserved EF, mild LVH and no valvular disesae. No wall motion abnormalities. BP remains uncontrolled this morning. Titrate losartan to 50 mg daily HR's improved and in the 60's. continue carvedilol. Ortho has been consulted for ongoing right leg/sciatica pain Case discussed with Dr. Rodriguez I spent a total of 30 minutes on the date of service in preparation, delivery, and documentation of the care provided to this patient, excluding any time spent in the performance of separately billed services. Keyana Flores PA-C Department of Cardiology, [facility] This chart was completed in part utilizing Speech Voice Recognition Software. Grammatical errors, random word insertions, pronoun errors, and incomplete sentences are an occasional consequence of this system due to software limitations, ambient noise, and hardware issues. Any formal questions or concerns about the content, text, or information contained within the body of this dictation should be directly addressed to the provider for clarification. Admission and Anticipated Discharge Date Admission Date: March 28, 2023 Supervising Physician Co-Signing Physician Notes Supervising Physician Attestation: I have personally performed a history and physical examination on the patient. I agree with the physician assistant produce manager's findings and plan as documented with the following additions. Subjective: Only complaint is ongoing leg pain. Telemetry reveals stable sinus rhythm. For the most part blood pressures have trended toward improvement, but still has occasional high blood pressure readings. Exam: CV: regular , no murmurs, no edema Pulm: CTAB Data: Echo: LVEF 60-65%, mild concentric LVH, grade I Diastolic Dysfunction Assessment and Plan: Uncontrolled HTN -Increase losartan from 25 mg to 50 mg daily. Carvedilol 3.125 mg twice daily. Anticipate will take titration of 3 blood pressure medications given her degree of baseline hypertension.. DVT prophylaxis: Subcutaneous heparin I spent a total of 20 minutes on the date of service in preparation, delivery, and documentation of the care provided to this patient, excluding any time spent in the performance of separately billed services. Nghia Rodriguez, DO Subjective Patient resting in bed. Ongoing right leg pain noted. Ortho consulted. Abdominal pain improved. No recurrent SOB. BP remains high. No dizziness or lightheadedness. No chest pain. Review of Systems Review of Systems: All systems reviewed & are unremarkable except as noted in HPI & below Physical Exam Constitutional: WD/WN, vitals as above + obese; no acute distress Neck: + thick neck Respiratory: normal respiratory effort, lungs clear to auscultation Cardiovascular: Rate/Rhythm: regular rate and regular rhythm Heart Sounds: no murmur Vessels: no JVD Extremities: + edema (trace right LE edema) Gastrointestinal (Abdomen): normal bowel sounds, soft, nontender, no hepatosplenomegaly Skin: no rashes, warm and dry Neurologic: PERRL, EOMI, accommodation nl, no face palsy, no dysarthria Results & Data Vital Signs (Past 12 Hours) Vital Signs Temp Pulse Pulse Resp BP BP BP 03/29/23 11:10 36.8 C 66 16 165/95 H 03/29/23 11:39 172/101 H 03/29/23 08:06 36.6 C 73 16 166/98 H 03/29/23 06:00 73 03/29/23 06:59 84 16 03/29/23 05:10 92 H 164/97 H 03/29/23 04:55 94 H 173/110 H 03/29/23 04:00 36.5 C 87 18 196/118 H Pulse Ox O2 Del Method 03/29/23 11:10 92 Room Air 03/29/23 11:39 03/29/23 08:06 94 Room Air 03/29/23 06:00 03/29/23 06:59 96 Room Air 03/29/23 05:10 03/29/23 04:55 03/29/23 04:00 98 Room Air Laboratory Results Cardiac Enzymes 03/28/23 Range/Units 12:52 Troponin I High Sens 18.0 H D (0-14) pg/ml Comprehensive Metabolic Panel 03/29/23 Range/Units 06:46 Sodium 140 (136-145) mmol/L Potassium 3.8 (3.5-5.1) mmol/L Chloride 109 H (98-107) mmol/L Carbon Dioxide 25 (21-32) mmol/L BUN 13 (6-23) mg/dl Creatinine 0.84 (0.6-1.2) mg/dl Glucose 102 H (70-99(Fasting)) mg/dl Calcium 9.1 (8.6-10.3) mg/dl Intake and Output 03/28/23 03/29/23 03/29/23 22:59 06:59 14:59 Intake Total 1341.323 / 1691.323 350 / 1691.323 Balance 1341.323 / 1691.323 350 / 1691.323 Intake: IV 861.323 / 861.323 Sodium Chloride 0.9% 1000ML 1, 861.323 / 861.323 000 ml @ 80 mls/hr IV .[id number] [facility] Rx#:[id number] Oral 480 / 830 350 / 830 Other: Weight 96.4 kg Weight Measurement Method Standing Scale Diagnostic Findings Telemetry reviewed: NSR in the 60-80's. EKG this morning: NSR at 64 bpm - no acute ST/T wave abnormalities echo completed yesterday reviewed - Mild concentric LVH LV wall motion is normal. LVEF 60-65% Grade I diastolic dysfunction No significant valvular disease Medications Administered Current Inpatient Medications Acetaminophen (Acetaminophen 325 Mg Tab) 650 mg PO Q4H PRN PRN Reason: Pain or Fever Stop: 04/27/23 04:42 Last Admin: 03/29/23 04:17 Dose: 650 mg Hydrocodone Bitart/Acetaminophen (Hydrocodone/Acetamophen 5/325mg Tab) 1 tab PO TID PRN PRN Reason: Pain Stop: 04/11/23 04:42 Last Admin: 03/29/23 05:41 Dose: 1 tab Albuterol (Albut/Ipratrop 3mg/0.5mg Neb 3 Ml Vial) 3 ml NEB QIDR PRN; Protocol PRN Reason: Wheezing Stop: 04/27/23 06:59 Carvedilol (Carvedilol 3.125 Mg Tab) 3.125 mg PO BIDM [facility] Stop: 04/27/23 16:59 Last Admin: 03/29/23 08:50 Dose: 3.125 mg Duloxetine HCl (Duloxetine Hcl 60 Mg Cap) 60 mg PO DAILY [facility] Stop: 04/27/23 08:59 Last Admin: 03/29/23 08:51 Dose: 60 mg Heparin Sodium (Porcine) (Heparin Sod 5,000 Unit/0.5 Ml Vial) 5,000 units SQ Q12 [facility] Stop: 04/27/23 20:59 Last Admin: 03/29/23 08:51 Dose: 5,000 units Labetalol HCl (Labetalol Hcl Iv 5 Mg/Ml 20ml) 10 mg IV Q4H PRN PRN Reason: Hypertension Stop: 04/27/23 05:52 Last Admin: 03/29/23 04:55 Dose: 10 mg Losartan Potassium (Losartan Potassium 50 Mg Tab) 50 mg PO QAM [facility] Stop: 04/29/23 08:59 Miscellaneous (Remove Nicoderm Patch) 1 each N/A DAILY@0859 [facility] Stop: 04/28/23 08:58 Last Admin: 03/29/23 08:51 Dose: 1 each Nicotine (Nicotine 14 Mg/24 Hr Patch) 14 mg TD DAILY [facility] Stop: 04/27/23 05:59 Last Admin: 03/29/23 08:51 Dose: 14 mg Nitroglycerin (Nitroglycerin Sl 0.4 Mg/Tab Tab) 0.4 mg SL Q5M PRN PRN Reason: Chest Pain Stop: 04/27/23 04:42 Ondansetron HCl (Ondansetron Inj 2 Mg/Ml 2 Ml Vial) 4 mg IV Q6H PRN PRN Reason: Nausea Stop: 04/27/23 04:42 Pantoprazole Sodium (Pantoprazole 40 Mg Tab) 40 mg PO QAM [facility] Stop: 04/28/23 08:59 Last Admin: 03/29/23 08:51 Dose: 40 mg
--- NOTE | 2023-03-29 12:52 | Electrocardiogram Report ---
Test Reason : Blood Pressure : / mmHG Vent. Rate : 064 BPM Atrial Rate : 064 BPM P-R Int : 134 ms QRS Dur : 086 ms QT Int : 418 ms P-R-T Axes : 056 -01 058 degrees QTc Int : 431 ms Normal sinus rhythm Nondiagnostic inferior Q waves Borderline ECG When compared with ECG of 28-MAR-2023 13:26, Minimal criteria for Anterior infarct are no longer Present Confirmed by Mark Scanlon ([id number]) on 03/29/2023 12:52:05 PM Referred By: REFERRED SELF Confirmed By:Mark Scanlon
[2023-03-29] MEDS ORDERED: LOSARTAN POTASSIUM 50 MG TAB PO ONE (13:00)
[2023-03-29] MEDS: LOSARTAN POTASSIUM 50 MG TAB PO SCH (13:20)
--- NOTE | 2023-03-29 15:45 | Magnetic Resonance Report ---
MR lumbar spine wo con CLINICAL HISTORY: 48 years-old Female with lower back pain and sciatica. Chronic low back pain. COMPARISON: 03/24/2023 TECHNIQUE: Multiplanar, multi sequence MRI of the lumbar spine was performed without intravenous cont rast. FINDINGS: Welding Process Engineer localizer images demonstrate no gross extraspinal abnormality. Mild dextroscoliosis of the thor acolumbar junction. The conus medullaris terminates at the L1 level. Normal signal within the imaged thoracic spinal cord. 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 Mild to moderate marrow edema within the pedicles and facets at L4-L5 and L5-S1. Deep tissue edema surrounds the lower lumbar spine facets. T12-L1: Mild intervertebral disc space narrowing and spondylotic spurring and small circumferential annular disc bulge. The ligament of flavum thickening with mild facet arthrosis. No central canal or neural foraminal stenosis. L1-L2: Ligamentum flavum thickening with mild facet arthrosis. No central canal or neural foraminal stenosis. L2-L3: Mild intervertebral disc space narrowing. Ligamentum flavum thickening with moderate facet ar throsis and trace left facet effusion. The central canal and right neural foramen is patent. Mild to moderate left foraminal stenosis. L3-L4: Mild intervertebral disc space narrowing with spondylotic spurring and small circumferential annular disc bulge. Ligamentum flavum thickening with moderate to severe facet arthrosis. Mild centra l canal stenosis, AP dimension of the thecal sac measuring 9 mm. Mild left foraminal narrowing. The r ight neural foramen is patent. L4-L5: Mild intervertebral disc space narrowing with spondylotic spurring and small circumferential annular disc bulge. 6 mm central disc protrusion. Ligamentum flavum thickening with severe facet arth rosis and small facet effusions. Severe central canal stenosis with AP dimension of thecal sac measur ing 5 mm. Severe right with moderate to severe left foraminal stenosis. Moderate to severe right with moderate left foraminal narrowing. L5-S1: Mild intervertebral disc space narrowing. 3 mm anterolisthesis. Spondylotic spurring with sma ll posterior disc bulge. Ligamentum flavum thickening with severe facet arthrosis. Moderate narrowing of the right lateral recess. No significant central canal or neural foraminal narrowing. Chronic sebastian ateral L5 pars defects. IMPRESSION: 1. Chronic L5 pars defects with 3 mm anterolisthesis. 2. Discogenic degeneration with facet arthrosis as above. 3. Severe central canal stenosis at L4-L5 with multilevel neural foraminal narrowing. ACT 112: Negative or not required by law. The above report was generated using voice recognition software. It may contain grammatical, syntax o r spelling errors. Electronically signed by: London Tirado M.D. 03/29/2023 3:44 PM
--- NOTE | 2023-03-29 18:51 | Hospitalist Progress Note ---
Date of Service March 29, 2023 Assessment & Plan (1) Acute dyspnea: Plan: Unclear etiology. May be related to her HTN urgency. CTA chest negative for PE or pulmonary edema Patient with long standing smoking history. Smokes daily since age of 14, down to 1/4 pack per day currently Appreciate Pulmonology input, no clear underlying disease to explain her dyspnea. (2) Elevated troponin: Plan: Appreciate Cardiology input. In setting of HTN urgency. TTE shows mild concentric LVH, EF 60%. grade 1 diastolic dysfunction (3) Upper abdominal pain: Plan: EGD 03/28 shows gastritis Patient on NSAIDs, also recently started on steroid for back pain. Both were discontinued. continue protonix Avoid NSAIDs going forward (4) Right lumbar radiculitis: Plan: Worsening in past couple of months. MRI lumbar spine and orthopedic surgery consult, input appreciated Plan Disposition- likely discharge tomorrow Admission and Anticipated Discharge Date Admission Date: March 28, 2023 Subjective Ongoing midline lower back pain and right sciatica Denies further SOB BP remains elevated, no chest pain Has not slept well in the past 2 nights Review of Systems Review of Systems: as above Physical Exam Physical Exam: No acute distress, pleasant and comfortable Respiratory: breathing comfortably on room air, no wheezing/rhonchi Cardiovascular: regular rate and rhythm, no murmurs/rubs Gastrointestinal (Abdomen): soft, non tender Musculoskeletal: no edema Neurologic: awake, alert, spontaneously moving extremities Results & Data Results & Data Vital Signs (Past 12 Hours) Vital Signs Temp Pulse Resp BP BP Pulse Ox O2 Del Method 03/29/23 17:25 89 176/100 H 97 Room Air 03/29/23 15:17 36.9 C 85 16 155/104 H 95 Room Air 03/29/23 11:10 36.8 C 66 16 165/95 H 92 Room Air 03/29/23 11:39 172/101 H 03/29/23 08:06 36.6 C 73 16 166/98 H 94 Room Air 03/29/23 06:59 84 16 96 Room Air
[2023-03-29] MEDS ORDERED: HYDROmorphone INJ 0.5 MG/0.5 ML SYR IV STA (19:49)
[2023-03-30] MEDS: carvediloL 3.125 MG TAB PO SCH (07:55)
[2023-03-30] MEDS: PANTOprazole 40 MG TAB PO SCH (07:56)
[2023-03-30] MEDS: NICOTINE 14 MG/24 HR PATCH TD SCH (07:56)
[2023-03-30] MEDS: DULoxetine HCL 60 MG CAP PO SCH (07:56)
--- NOTE | 2023-03-30 07:57 | Electrocardiogram Report ---
Test Reason : Blood Pressure : / mmHG Vent. Rate : 068 BPM Atrial Rate : 068 BPM P-R Int : 132 ms QRS Dur : 088 ms QT Int : 408 ms P-R-T Axes : 061 -17 071 degrees QTc Int : 433 ms Normal sinus rhythm Left atrial enlargement Borderline ECG When compared with ECG of 29-MAR-2023 11:58, No significant change Confirmed by Mark Scanlon ([id number]) on 03/30/2023 7:57:51 AM Referred By: REFERRED SELF Confirmed By:Mark Scanlon
[2023-03-30] MEDS: HYDROCODONE/ACETAMOPHEN 5/325MG TAB PO PRN (08:00)
[2023-03-30] MEDS: LOSARTAN POTASSIUM 50 MG TAB PO SCH (09:00)
[2023-03-30] MEDS ORDERED: SPIRONOLACTONE 12.5 MG TAB PO SCH (09:00)
[2023-03-30] MEDS: HEPARIN SOD 5,000 UNIT/0.5 ML VIAL SQ SCH (09:05)
--- NOTE | 2023-03-30 10:02 | Cardiology Progress Note ---
Date of Service March 30, 2023 Assessment & Plan (1) Hypertension: (2) Upper abdominal pain: (3) Elevated troponin: Plan Patient admitted with multitude of symptoms including abdominal pain, SOB, leg pain. She had been to ER 3 different times for similar complaints. CT of the abdomen revealed possible gastric wall thickening. EGD earlier this admission demonstrated only mild gastritis. Cardio consulted for HTN and Borderline elevated troponin on admission, which was flat x3, and likely due to significantly uncontrolled hypertension. Per review of outpatient records, patient has a long history of hypertension that has not been treated. She was on lisinopril 20+ years ago and never resumed after . She did develop CHACHO induced cough with it. Losartan and carvedilol initiated. Losartan titrated to 50 mg daily Unable to increase carvedilol due to sinus rates in the 60's. continue 3.125 mg BID. Add spironolactone 12.5 mg daily due to HTN, edema, and hypokalemia. Echo with preserved EF, mild LVH and no valvular disesae. No wall motion abnormalities. Ortho has been consulted for ongoing right leg/sciatica pain. MRI with severe spinal stenosis. Stable cardiac symptoms. Will sign off. Please contact transportation supervisor physician with additional questions or concerns. [facility] Case discussed with Dr. Rodriguez I spent a total of 30 minutes on the date of service in preparation, delivery, and documentation of the care provided to this patient, excluding any time spent in the performance of separately billed services. Keyana Flores PA-C Department of Cardiology, [facility] This chart was completed in part utilizing Speech Voice Recognition Software. Grammatical errors, random word insertions, pronoun errors, and incomplete sentences are an occasional consequence of this system due to software limitations, ambient noise, and hardware issues. Any formal questions or concerns about the content, text, or information contained within the body of this dictation should be directly addressed to the provider for clarification. Admission and Anticipated Discharge Date Admission Date: March 28, 2023 Supervising Physician Co-Signing Physician Notes Supervising Physician Attestation: I have personally performed a history and physical examination on the patient. I agree with the physician optical assistant's findings and plan as documented with the following additions. Subjective: is with her at the bedside. Only complaint is ongoing leg pain. Telemetry reveals stable sinus rhythm. Exam: CV: regular , no murmurs, no edema Pulm: CTAB Data: Echo: LVEF 60-65%, mild concentric LVH, grade I Diastolic Dysfunction Assessment and Plan: Uncontrolled HTN -Increase losartan from 25 mg to 50 mg daily. Carvedilol 3.125 mg twice daily. -Start spironolactone 12.5 mg daily. -Outpatient follow-up. -Defer work-up of back pain, spinal stenosis to the hospital service DVT prophylaxis: Subcutaneous heparin I spent a total of 20 minutes on the date of service in preparation, delivery, and documentation of the care provided to this patient, excluding any time spent in the performance of separately billed services. Nghia Rodriguez, DO Subjective Patient resting in bed. Uncomfortable due to hip/leg pain today. Chronic/ongoing back pain noted. Pain likely contributing to elevated BP. Had spinal MRI yesterday with severe spinal stenosis. No recurrent dyspnea/SOB. No chest pain. Tolerating medications. Review of Systems Review of Systems: All systems reviewed & are unremarkable except as noted in HPI & below Physical Exam Constitutional: WD/WN, vitals as above + obese; no acute distress Neck: + thick neck Respiratory: normal respiratory effort, lungs clear to auscultation Cardiovascular: Rate/Rhythm: regular rate and regular rhythm Heart Sounds: no murmur Vessels: no JVD Extremities: + edema (trace right LE edema) Gastrointestinal (Abdomen): normal bowel sounds, soft, nontender, no hepatosplenomegaly Skin: no rashes, warm and dry Neurologic: PERRL, EOMI, accommodation nl, no face palsy, no dysarthria Results & Data Vital Signs (Past 12 Hours) Vital Signs Temp Pulse Pulse Resp BP BP Pulse Ox 03/30/23 09:00 67 03/30/23 08:02 36.9 C 88 20 180/107 H 95 03/30/23 03:43 161/79 H 03/30/23 02:54 36.6 C 18 182/109 H 98 03/29/23 22:31 69 03/30/23 00:00 37 C 83 20 151/87 H 97 O2 Del Method 03/30/23 09:00 03/30/23 08:02 Room Air 03/30/23 03:43 03/30/23 02:54 Room Air 03/29/23 22:31 03/30/23 00:00 Room Air Laboratory Results Intake and Output 03/29/23 03/30/23 03/30/23 22:59 06:59 14:59 Intake Total 300 / 850 100 / 850 Balance 300 / 850 100 / 850 Intake: Oral 300 / 850 100 / 850 Other: Weight 99.2 kg Weight Measurement Method Built in [facility] Diagnostic Findings Telemetry reviewed: NSR with HR's ranging 60-90's. no arrhythmias EKG reviewed dated 03/30/23: NSR at 68 bpm, LAE no change from previous Lumbar Spine MRI 03/29/23 09:15 MR lumbar spine wo con CLINICAL HISTORY: 48 years-old Female with lower back pain and sciatica. Chronic low back pain. COMPARISON: 03/24/2023 TECHNIQUE: Multiplanar, multi sequence MRI of the lumbar spine was performed without intravenous contrast. FINDINGS: Mortgage Specialist localizer images demonstrate no gross extraspinal abnormality. Mild dextroscoliosis of the thoracolumbar junction. The conus medullaris terminates at the L1 level. Normal signal within the imaged thoracic spinal cord. 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 Mild to moderate marrow edema within the pedicles and facets at L4-L5 and L5-S1. Deep tissue edema surrounds the lower lumbar spine facets. T12-L1: Mild intervertebral disc space narrowing and spondylotic spurring and small circumferential annular disc bulge. The ligament of flavum thickening with mild facet arthrosis. No central canal or neural foraminal stenosis. L1-L2: Ligamentum flavum thickening with mild facet arthrosis. No central canal or neural foraminal stenosis. L2-L3: Mild intervertebral disc space narrowing. Ligamentum flavum thickening with moderate facet arthrosis and trace left facet effusion. The central canal and right neural foramen is patent. Mild to moderate left foraminal stenosis. L3-L4: Mild intervertebral disc space narrowing with spondylotic spurring and small circumferential annular disc bulge. Ligamentum flavum thickening with moderate to severe facet arthrosis. Mild central canal stenosis, AP dimension of the thecal sac measuring 9 mm. Mild left foraminal narrowing. The right neural foramen is patent. L4-L5: Mild intervertebral disc space narrowing with spondylotic spurring and small circumferential annular disc bulge. 6 mm central disc protrusion. Ligamentum flavum thickening with severe facet arthrosis and small facet effusions. Severe central canal stenosis with AP dimension of thecal sac measuring 5 mm. Severe right with moderate to severe left foraminal stenosis. Moderate to severe right with moderate left foraminal narrowing. L5-S1: Mild intervertebral disc space narrowing. 3 mm anterolisthesis. Spondylotic spurring with small posterior disc bulge. Ligamentum flavum thickening with severe facet arthrosis. Moderate narrowing of the right lateral recess. No significant central canal or neural foraminal narrowing. Chronic bilateral L5 pars defects. IMPRESSION: 1. Chronic L5 pars defects with 3 mm anterolisthesis. 2. Discogenic degeneration with facet arthrosis as above. 3. Severe central canal stenosis at L4-L5 with multilevel neural foraminal narrowing. ACT 112: Negative or not required by law. The above report was generated using voice recognition software. It may contain grammatical, syntax or spelling errors. Electronically signed by: London Tirado M.D. 03/29/2023 3:44 PM Medications Administered Current Inpatient Medications Acetaminophen (Acetaminophen 325 Mg Tab) 650 mg PO Q4H PRN PRN Reason: Pain or Fever Stop: 04/27/23 04:42 Last Admin: 03/29/23 04:17 Dose: 650 mg Hydrocodone Bitart/Acetaminophen (Hydrocodone/Acetamophen 5/325mg Tab) 1 tab PO TID PRN PRN Reason: Pain Stop: 04/11/23 04:42 Last Admin: 03/30/23 08:00 Dose: 1 tab Albuterol (Albut/Ipratrop 3mg/0.5mg Neb 3 Ml Vial) 3 ml NEB QIDR PRN; Protocol PRN Reason: Wheezing Stop: 04/27/23 06:59 Carvedilol (Carvedilol 3.125 Mg Tab) 3.125 mg PO BIDM [facility] Stop: 04/27/23 16:59 Last Admin: 03/30/23 07:55 Dose: 3.125 mg Duloxetine HCl (Duloxetine Hcl 60 Mg Cap) 60 mg PO DAILY [facility] Stop: 04/27/23 08:59 Last Admin: 03/30/23 07:56 Dose: 60 mg Heparin Sodium (Porcine) (Heparin Sod 5,000 Unit/0.5 Ml Vial) 5,000 units SQ Q12 [facility] Stop: 04/27/23 20:59 Last Admin: 03/30/23 09:05 Dose: Not Given Labetalol HCl (Labetalol Hcl Iv 5 Mg/Ml 20ml) 10 mg IV Q4H PRN PRN Reason: Hypertension Stop: 04/27/23 05:52 Last Admin: 03/29/23 20:23 Dose: 10 mg Losartan Potassium (Losartan Potassium 50 Mg Tab) 50 mg PO QAM [facility] Stop: 04/29/23 08:59 Last Admin: 03/30/23 09:00 Dose: 50 mg Miscellaneous (Remove Nicoderm Patch) 1 each N/A DAILY@0859 [facility] Stop: 04/28/23 08:58 Last Admin: 03/30/23 07:56 Dose: 1 each Nicotine (Nicotine 14 Mg/24 Hr Patch) 14 mg TD DAILY [facility] Stop: 04/27/23 05:59 Last Admin: 03/30/23 07:56 Dose: 14 mg Nitroglycerin (Nitroglycerin Sl 0.4 Mg/Tab Tab) 0.4 mg SL Q5M PRN PRN Reason: Chest Pain Stop: 04/27/23 04:42 Ondansetron HCl (Ondansetron Inj 2 Mg/Ml 2 Ml Vial) 4 mg IV Q6H PRN PRN Reason: Nausea Stop: 04/27/23 04:42 Pantoprazole Sodium (Pantoprazole 40 Mg Tab) 40 mg PO [facility] Stop: 04/28/23 08:59 Last Admin: 03/30/23 07:56 Dose: 40 mg Spironolactone (Spironolactone 12.5 Mg Tab) 12.5 mg PO DAILY [facility] Stop: 04/29/23 08:59 Last Admin: 03/30/23 09:00 Dose: 12.5 mg
--- NOTE | 2023-03-30 10:29 | Orthopedic Progress Note ---
Date of Service March 30, 2023 Assessment & Plan (1) Neurogenic claudication due to lumbar spinal stenosis: Plan: I did discuss with the patient and her her MRI results. She is severe spinal stenosis at multiple levels most impressively at L4-5 followed by L5-S1. This point she is not a surgical candidate. I recommend she work with interventional pain management for injections. If she continues to decline she may ultimately be a surgical candidate. Patient stands agrees. Admission and Anticipated Discharge Date Admission Date: March 28, 2023 Subjective Patient states her back and leg symptoms are stable at this time. She has had chronic leg pain for years. Physical Exam Physical Exam: Patient is stable the bedside. She is regional strength testing. Appears comfortable. Results & Data Vital Signs (Past 12 Hours) Vital Signs Temp Pulse Pulse Resp BP BP Pulse Ox 03/30/23 09:00 67 03/30/23 08:02 36.9 C 88 20 180/107 H 95 03/30/23 03:43 161/79 H 03/30/23 02:54 36.6 C 18 182/109 H 98 03/29/23 22:31 69 03/30/23 00:00 37 C 83 20 151/87 H 97 O2 Del Method 03/30/23 09:00 03/30/23 08:02 Room Air 03/30/23 03:43 03/30/23 02:54 Room Air 03/29/23 22:31 03/30/23 00:00 Room Air
--- NOTE | 2023-03-30 19:11 | Discharge Summary ---
Date of Service March 30, 2023 Admission HPI Per Admitting Provider 48-year-old female past medical significant for hypertension, obesity, inflammatory polyarthritis, fibromyalgia, osteoarthritis of knees, migraine, ongoing tobacco abuse smokes quarter pack a day presents with shortness of breath on exertion starting today. Patient was here couple of days ago in ER for abdominal pain and back pain at the time CT abdomen pelvis was okay and she was discharged home on Medrol Dosepak for lumbar radiculitis and pain medications. Her back pain is improved. Patient not coughing much. Afebrile. Denies any chest pain. No headache or dizziness. No blurred vision. No earache or runny nose or sore throat. No dysphagia. No nausea. No abdominal pain currently. Normal bowel and bladder meds. Resting comfortably. Past medical history as mentioned above Past surgical history bilateral carpal tunnel surgery Family history patient is adopted Social history smokes quarter pack a day. No alcohol use. No drug use. Principal Diagnosis Poorly controlled HTN Severe spinal stenosis Gastric wall thickening Discharge Exam Patient was seen on day of discharge. Laying in bed comfortable. Denies changes to her back pain/right sciatica. Denies bowel/bladder incontinence. Ambulating in room Breathing comfortably on room air Discharge Data Allergies Allergy/AdvReac Type Severity Reaction Status Date / Time codeine Allergy Mild ITCH Verified 03/28/23 08:57 No Known Allergies Allergy Mild Verified 03/28/23 08:57 Consultations 03/28/23 00:09 ED Decision to Admit Stat 03/28/23 08:00 Consult Cardiology Routine Consult Gastroenterology Routine 03/28/23 16:23 Consult Pulmonology Routine 03/29/23 09:16 Consult Orthopedic Surgery Routine Procedures Performed Operation Date: 03/28/23 16:30 Actual Procedures p EGD Biopsy Cytology - Noam Valiente DO Ordered Studies 03/27/23 21:45 CT angio chest PE protocol Stat 03/29/23 09:15 MRI Lumbar Spine [MR lumbar spine wo con] Routine Hospital Course (1) Acute dyspnea: Unclear etiology. May be related to her HTN urgency but CXR negative for pulmonary edema. CTA chest negative for PE She was evaluated by Pulmonology who did not feel her SOB was due to an underlying pulmonary source (2) Elevated troponin: Appreciate Cardiology input. In setting of HTN urgency. TTE shows mild concentric LVH, EF 60%. grade 1 diastolic dysfunction (3) Upper abdominal pain: EGD 03/28 shows mild gastritis. Biopsy pathology unrevealing. Planning for outpatient EUS Patient on NSAIDs, also recently started on steroid for back pain. Both were discontinued. continue protonix Avoid NSAIDs going forward (4) Right lumbar radiculitis: Worsening in past couple of months. MRI lumbar spine shows severe spinal stenosis Evaluated by orthopedic surgery and recommend trial of pain management. Follow up with orthopedic surgery (5) Hypertension: BP very elevated on presention. Highest 225/137 Not currently taking anti hypertensives Started on Coreg, Losartan and spironolactone Follow up with PCP and Cardiology after discharge for further up titration BP improved at time of discharge but not at goal (166/103) Total Time Total Time Spent Total Time Spent (In Minutes): 35 Discharge Plan Discharge Items Patient Disposition: Home - Self-Care Reason For Visit: SOB, ELEVATED TROPONIN Discharge Diagnosis: Poorly controlled HTN Severe spinal stenosis Gastric wall thickening Condition on Discharge: Good Activity: As commented below Lifting: No more than 5 pounds Non-emergency contact: Primary Care Provider, Surgeon, Leadership Development Consultant and Toe Former Call non-emergency contact if: you have any medication questions and your symptoms worsen Follow-up/Referrals: Mane Hernandez DO [Surgeon] - Nghia Rodriguez DO [Leadership Development Consultant] - Noam Valiente DO [Physician] - (Follow up for EUS) Neo Prince MD [Primary Care Provider] - 04/03/23 8:20 am (Date & Time 04/03/2023 8:20 AM Provider Neo Prince MD Department Family Medicine [facility] ) Diet: Heart Healthy Addtl Attending Provider Instructions: If you have worsening back pain or leg weakness. difficulty holding in your stool or urine. Numbness/tingling in legs Please return to ER Please follow up with your PCP in 2 weeks for blood pressure check. Please follow up with Cardiology for your blood pressure. Gastroenterology to schedule an EUS. Orthopedic surgery for your spinal stenosis. It is recommended you see pain management for your back Pending Studies at Discharge: No Stand-Alone Forms: My [employer], Work/School Release, Smoking Cessation Medications and DC Order Prescriptions: New losartan 50 mg Tablet 50 mg PO QAM 30 Days Qty: 30 0RF hydrocodone-acetaminophen 5-325 mg Tablet 1 tab PO TID PRN (Reason: pain) 7 Days Qty: 15 0RF spironolactone 25 mg Tablet 12.5 mg PO DAILY 30 Days Qty: 15 0RF carvedilol 3.125 mg Tablet 3.125 mg PO BIDM 30 Days Qty: 60 0RF pantoprazole 40 mg Tablet,Delayed Release (Dr/Ec) 40 mg PO QAM 30 Days Qty: 30 1RF nicotine 7 mg/24 hr Patch 24 Hour 7 mg transdermal DAILY 30 Days Qty: 30 0RF gabapentin 100 mg capsule 100 mg PO BID 30 Days Qty: 60 0RF Continued leflunomide 10 mg tablet 10 mg PO DAILY duloxetine 60 mg capsule,delayed release(DR/EC) 60 mg PO DAILY Discontinued hydrocodone-acetaminophen 5-325 mg tablet 1 tab PO TID PRN (Reason: Pain) methylprednisolone 4 mg tablets,dose pack 4 mg PO UD Rx Instructions: as directed etodolac 500 mg tablet 500 mg PO BID Discharge Orders: Discharge Order (Routine); Ordered 03/30/23 Ordered By: Blaise Louis Admission Data Admit Date/Time: 03/28/23 01:11 Attending Provider: Blaise Louis Admit Provider: Rodriguez Maldonado Primary Care Provider: Neo Prince Other Providers: Rodriguez Maldonado ; Nghia Rodriguez ; Mateo Delarosa ; Shilo Caputo ; Mary Mcmanus ; Emily Owens ; Kathy Dillon ; Kelly Madrigal ; Kaden Echavarria ; Connor Alvarez ; Noam Valiente ; Kadi Forrester ; Kenny Tyler ; Coreen Linda ; Felicita Kauffman ; Lorenza Morocho ; Rosangela Pena ; Lisa Johnston ; Adolfo Vidal ; Jordon Alvarado ; Lisbeth Cotto ; Audra Wise Jr ; Edvin Warner ; Nikia Zuluaga ; Mane Hernandez Other Interventions: Discharge Summary Assessment (RN) Last Done: 03/30/23 13:22
== END 2023-03-30 14:00 | disposition home or self-care (01) | DRG 305 ==
LOC: ED 21:19 → SUATTDRO 03-28 01:11 → 2N 03-28 01:11